=== PATIENT | male | born 1940 | race Caucasian/White ===

== ENCOUNTER 2020-02-22 10:58 | Outpatient (CLI) | payer MEDICARE, SELFPAY ==
[2020-02-22 12:05] LABS: Basophils Absolute Auto 0.1 K/mm3 (0.0-0.1); Basophils Percent Auto 0.7 % (0.2-1.2); Eosinophils Absolute Auto 0.1 K/mm3 (0-0.3); Eosinophils Percent Auto 1.3 % (0-4.4); Hematocrit 40.5 % (42.0-52.0); Immature Granulocyte Absolute 0.03 K/mm3 (0.00-0.031); Immature Granulocyte Percent A 0.3 % (0-0.5); Lymphocytes Percent Auto 26.8 % (18.3-44.2); Mean Corpuscular HGB Conc 34.6 g/dl (32-36); Mean Corpuscular Hemoglobin 29.3 pg (26-34); Mean Corpuscular Volume 84.7 fl (80-100); Mean Platelet Volume 10.9 fl (7.4-10.4); Monocytes Absolute Auto 0.7 K/mm3 (0.1-0.6); Monocytes Percent Auto 7.3 % (2.6-8.5); Neutrophils Absolute Auto 6.2 K/mm3 (1.3-6.7); Neutrophils Percent Auto 63.6 % (45.5-73.1); Platelet Count Result 264 k/mm3 (150-375); Red Blood Count 4.78 M/mm3 (4.6-6.20); Red Cell Distribution Width 12.9 % (11.5-14.5); White Blood Count 9.7 K/mm3 (4.5-10.0)
[2020-02-22 12:18] LABS: Alanine Aminotransferase 15 U/L (4-50); Albumin Level 4.6 g/dL (3.5-5.1); Alkaline Phosphatase 61 U/L (38-126); Anion Gap 13.8 mmol/L (7-16); Aspartate Amino Transferase 24 U/L (17-59); Bilirubin,Total 0.8 mg/dL (0.2-1.3); Blood Urea Nitrogen 23 mg/dL (9-20); Carbon Dioxide 28 mmol/L (22-30); Chloride 95 mmol/L (98-107); Estimated Glomerular Filt Rate > 60; Glucose 100 mg/dL (75-110); Potassium 4.8 mmol/L (3.4-5.0); Sodium 132 mmol/L (137-145)
== END 2020-02-22 10:59 | disposition home or self-care (01) ==
LOC: ANHLAB 11:00
PROVIDERS: PCP Family Medicine; Visit Provider Physician Assistant
DX: D72.829 Elevated white blood cell count, unspecified (principal); I10 Essential (primary) hypertension
CPT/HCPCS: 36415; 80053; 85025

== ENCOUNTER 2020-03-14 07:28 | Outpatient (CLI) | payer MEDICARE, SELFPAY ==
[2020-03-14 08:00] LABS: Anion Gap 8 mmol/L (8-16); Blood Urea Nitrogen 19 mg/dL (9-20); Calcium 9.1 mg/dL (8.4-10.2); Carbon Dioxide 28 mmol/L (22-30); Chloride 100 mmol/L (98-107); Estimated Glomerular Filt Rate > 60; Glucose 111 mg/dL (75-110); Potassium 4.3 mmol/L (3.4-5.0); Sodium 136 mmol/L (137-145)
== END 2020-03-14 07:29 | disposition home or self-care (01) ==
PROVIDERS: PCP Family Medicine; Visit Provider Physician Assistant
DX: E87.1 Hypo-osmolality and hyponatremia (principal)
CPT/HCPCS: 36415; 80048

== ENCOUNTER 2020-08-29 09:48 | Outpatient (CLI) | payer MEDICARE, SELFPAY ==
[2020-08-29 10:20] LABS: Basophils Absolute Auto 0.1 K/mm3 (0.0-0.1); Eosinophils Absolute Auto 0.3 K/mm3 (0-0.3); Eosinophils Percent Auto 3.6 % (0-4.4); Hematocrit 42.7 % (42.0-52.0); Hemoglobin 14.6 g/dL (14.0-18.0); Immature Granulocyte Absolute 0.02 K/mm3 (0.00-0.031); Immature Granulocyte Percent A 0.2 % (0-0.5); Lymphocytes Absolute Auto 2.71 K/mm3 (0.9-3.2); Lymphocytes Percent Auto 31.4 % (18.3-44.2); Mean Corpuscular HGB Conc 34.2 g/dl (32-36); Mean Corpuscular Hemoglobin 28.6 pg (26-34); Mean Corpuscular Volume 83.6 fl (80-100); Mean Platelet Volume 10.3 fl (7.4-10.4); Monocytes Absolute Auto 0.7 K/mm3 (0.1-0.6); Monocytes Percent Auto 7.8 % (2.6-8.5); Neutrophils Absolute Auto 4.8 K/mm3 (1.3-6.7); Platelet Count Result 321 k/mm3 (150-375); Red Blood Count 5.11 M/mm3 (4.6-6.20); Red Cell Distribution Width 13.3 % (11.5-14.5); White Blood Count 8.6 K/mm3 (4.5-10.0)
[2020-08-29 10:29] LABS: Add Urine Microscopic? NO; Appearance Urine Clear (Clear); Bilirubin Urine Negative (Negative); Blood Urine Negative (Negative); Color Urine Yellow (Yellow); Glucose Urine UA Negative (Negative); Ketones Urine Negative (Negative); Leukocyte Esterase Ur Negative LEU/UL (NEGATIVE); Mucus Urine Rare /lpf; Nitrate Urine Negative (Negative); Protein Urine Negative (Negative); RBC Urine 0-2 /hpf (0-2); Specific Grav Ur 1.014 (1.001-1.035); Urobilinogen Urine Negative mg/dL (<2.0); WBC Urine 0-3 /hpf (0-3)
[2020-08-29 11:01] LABS: Vitamin D 25 Hydroxy 22.1 ng/mL
[2020-08-29 11:06] LABS: Alanine Aminotransferase 20 U/L (4-50); Albumin Level 4.8 g/dL (3.5-5.1); Alkaline Phosphatase 55 U/L (38-126); Anion Gap 5 mmol/L (8-16); Aspartate Amino Transferase 30 U/L (17-59); Bilirubin,Total 0.7 mg/dL (0.2-1.3); Blood Urea Nitrogen 21 mg/dL (9-20); Calcium 10.1 mg/dL (8.4-10.2); Carbon Dioxide 32 mmol/L (22-30); Chloride 100 mmol/L (98-107); Cholesterol 265 mg/dL (0-200); Estimated Glomerular Filt Rate > 60; Glucose 114 mg/dL (75-110); HDL Direct 41 mg/dL; Potassium 5.1 mmol/L (3.4-5.0); Sodium 137 mmol/L (137-145); Triglycerides 174 mg/dL (<150)
[2020-08-29 11:12] LABS: Hemoglobin A1C 5.7 % (<5.7)
[2020-08-29 11:18] LABS: LDL Cholesterol Direct 194 mg/dL
[2020-08-29 11:39] LABS: Prostate Specific Antigen 2.4 ng/mL (< OR = 4.0)
== END 2020-08-29 09:49 | disposition home or self-care (01) ==
PROVIDERS: PCP Family Medicine; Visit Provider Nurse Practitioner Family
DX: E55.9 Vitamin D deficiency, unspecified (principal); R73.01 Impaired fasting glucose; E78.2 Mixed hyperlipidemia; R35.1 Nocturia; I10 Essential (primary) hypertension; E78.5 Hyperlipidemia, unspecified; Z12.5 Encounter for screening for malignant neoplasm of prostate
CPT/HCPCS: 36415; 80053; 80061; 81003; 82306; 83036; 84153; 84443; 85025; G0103

== ENCOUNTER 2021-01-29 10:21 | Outpatient (CLI) | payer MEDICARE, SELFPAY ==
[2021-01-29 11:11] LABS: Alanine Aminotransferase 20 U/L (4-50); Albumin Level 4.6 g/dL (3.5-5.1); Alkaline Phosphatase 48 U/L (38-126); Anion Gap 9 mmol/L (8-16); Aspartate Amino Transferase 27 U/L (17-59); Bilirubin,Total 0.7 mg/dL (0.2-1.3); Blood Urea Nitrogen 16 mg/dL (9-20); Calcium 9.4 mg/dL (8.4-10.2); Carbon Dioxide 28 mmol/L (22-30); Chloride 94 mmol/L (98-107); Estimated Glomerular Filt Rate > 60; Glucose 105 mg/dL (75-110); Potassium 5.1 mmol/L (3.4-5.0); Sodium 131 mmol/L (137-145)
== END 2021-01-29 10:22 | disposition home or self-care (01) ==
PROVIDERS: PCP Family Medicine; Visit Provider Nurse Practitioner Family
DX: E78.2 Mixed hyperlipidemia (principal); I10 Essential (primary) hypertension
CPT/HCPCS: 36415; 80053

== ENCOUNTER 2021-09-09 08:35 | Outpatient (CLI) | payer MEDICARE, SELFPAY ==
[2021-09-09 08:51] LABS: Hematocrit 39.9 % (37.0-46.0); Hemoglobin 13.8 g/dL (12.4-15.3); Mean Corpuscular HGB Conc 34.6 g/dL (32.0-36.0); Mean Corpuscular Hemoglobin 29.5 pg (27.0-31.0); Mean Corpuscular Volume 85.3 fL (78.0-102.0); Mean Platelet Volume 9.7 fl (8.7-11.0); Platelet Count Result 300 K/mm3 (150-420); Red Blood Count 4.68 M/mm3 (4.70-6.10); Red Cell Distribution Width 13.5 % (11.6-14.4); White Blood Count 10.8 K/mm3 (4.8-10.8)
[2021-09-09 08:56] LABS: Add Urine Microscopic? NO; Appearance Urine Clear (Clear); Bilirubin Urine Negative (Negative); Blood Urine Negative (Negative); Color Urine Light Yellow (Yellow); Glucose Urine UA Negative (Negative); Ketones Urine Negative (Negative); Leukocyte Esterase Ur Negative (Negative); Nitrate Urine Negative (Negative); Protein Urine Negative (Negative); Specific Grav Ur 1.015 (1.010-1.020); Urobilinogen Urine 0.2 mg/dL (0.2-1.0); pH Urine 7.5 (5.0-8.0)
[2021-09-09 09:36] LABS: Alanine Aminotransferase 33 U/L (16-63); Albumin Level 4.1 g/dL (3.4-5.0); Alkaline Phosphatase 66 U/L (46-116); Anion Gap 9 mmol/L (8-16); Aspartate Amino Transferase 19 U/L (15-37); Bilirubin,Total 0.8 mg/dL (0.00-1.00); Blood Urea Nitrogen 13 mg/dL (7-18); Calcium 9.1 mg/dL (8.5-10.1); Carbon Dioxide 31 mmol/L (21-32); Chloride 97 mmol/L (98-108); Cholesterol 219 mg/dL (0-200); Estimated Glomerular Filt Rate > 60; Glucose 100 mg/dL (70-99); HDL Direct 49 mg/dL (40-60); LDL Cholesterol Calculated 150 mg/dL (<130); Osmolality Calculated 284 mOsm/kg (285-295); Potassium 4.4 mmol/L (3.5-5.1); Sodium 137 mmol/L (136-145); Thyroid Stimulating Hormone 3.54 uIU/mL (0.36-3.74); Total Protein 7.3 g/dL (6.4-8.2); Triglycerides 98 mg/dL (0-150)
== END 2021-09-09 08:36 | disposition home or self-care (01) ==
LOC: CHSLAB 08:37
PROVIDERS: PCP Family Medicine; Visit Provider Family Medicine
DX: E78.2 Mixed hyperlipidemia (principal); I10 Essential (primary) hypertension; Z00.00 Encounter for general adult medical examination without abnormal findings; R53.83 Other fatigue
CPT/HCPCS: 36415; 80053; 80061; 81003; 84443; 85027

== ENCOUNTER 2022-01-31 09:55 | Outpatient (CLI) | payer MEDICARE, SELFPAY ==
[2022-01-31 10:27] LABS: Alanine Aminotransferase 27 U/L (16-63); Albumin Level 4.2 g/dL (3.4-5.0); Alkaline Phosphatase 55 U/L (46-116); Anion Gap 5 mmol/L (8-16); Aspartate Amino Transferase 21 U/L (15-37); Bilirubin,Total 0.6 mg/dL (0.00-1.00); Blood Urea Nitrogen 28 mg/dL (7-18); Calcium 9.2 mg/dL (8.5-10.1); Carbon Dioxide 28 mmol/L (21-32); Chloride 102 mmol/L (98-108); Estimated Glomerular Filt Rate 58; Glucose 110 mg/dL (70-99); Osmolality Calculated 286 mOsm/kg (285-295); Potassium 4.6 mmol/L (3.5-5.1); Sodium 135 mmol/L (136-145); Total Protein 7.8 g/dL (6.4-8.2)
== END 2022-01-31 09:56 | disposition home or self-care (01) ==
LOC: CHSLAB 09:58
PROVIDERS: PCP Physician Assistant; Visit Provider Physician Assistant
DX: I10 Essential (primary) hypertension (principal)
CPT/HCPCS: 36415; 80053

== ENCOUNTER 2022-07-14 10:36 | Outpatient (CLI) | payer MEDICARE, SELFPAY ==
--- NOTE | ~2022-07-14 | XR_ITS ---
Right Knee Technique: AP, lateral, and sunrise views were obtained. Clinical History: Pain Findings: No fracture or dislocation is seen. Mild degenerative change of the medial and patellofemor al compartments is present. There is joint space narrowing of the medial compartment on standing view . Vascular calcifications noted. No joint effusion is seen. Impression: Mild degenerative change of the medial and patellofemoral compartments, with medial compartment narro wing on standing view. Reviewed, dictated and finalized at location M. STAMPING PRESS OPERATOR Impression: Mild degenerative change of the medial and patellofemoral compartments, with me dial compartment narrowing on standing view.
== END 2022-07-14 10:37 | disposition home or self-care (01) ==
LOC: ANHIMG 10:39
PROVIDERS: PCP Family Medicine; Visit Provider Physician Assistant
DX: M25.461 Effusion, right knee (principal); M25.561 Pain in right knee
CPT/HCPCS: 73564

== ENCOUNTER 2022-09-10 07:17 | Outpatient (CLI) | payer MEDICARE, SELFPAY ==
[2022-09-10 08:11] LABS: Hematocrit 39.7 % (42.0-52.0); Hemoglobin 13.5 g/dL (14.0-18.0); Mean Corpuscular Hemoglobin 29.2 pg (26-34); Mean Corpuscular Volume 85.7 fl (80-100); Mean Platelet Volume 9.5 fl (7.4-10.4); Platelet Count Result 333 k/mm3 (150-375); Red Blood Count 4.63 M/mm3 (4.6-6.20); Red Cell Distribution Width 13.2 % (11.5-14.5); White Blood Count 10.9 K/mm3 (4.5-10.0)
[2022-09-10 08:19] LABS: Alanine Aminotransferase 21 U/L (6-50); Albumin Level 4.5 g/dL (3.5-5.1); Alkaline Phosphatase 55 U/L (38-126); Anion Gap 7 mmol/L (8-16); Aspartate Amino Transferase 24 U/L (17-59); Bilirubin,Total 0.6 mg/dL (0.2-1.3); Blood Urea Nitrogen 18 mg/dL (9-20); Calcium 9.3 mg/dL (8.4-10.2); Carbon Dioxide 28 mmol/L (22-30); Chloride 98 mmol/L (98-107); Cholesterol 247 mg/dL (0-200); Estimated Glomerular Filt Rate > 60; Glucose 103 mg/dL (65-110); HDL Direct 39 mg/dL; Potassium 4.4 mmol/L (3.4-5.0); Sodium 133 mmol/L (137-145); Triglycerides 143 mg/dL (<150)
[2022-09-10 08:28] LABS: Hemoglobin A1C 5.6 % (<5.7)
[2022-09-10 08:30] LABS: LDL Cholesterol Direct 144 mg/dL
[2022-09-10 09:48] LABS: Appearance Urine Slightly Cloudy (Clear); Bilirubin Urine Negative (Negative); Blood Urine Trace-intact (Negative); Color Urine Yellow (Yellow); Glucose Urine UA Negative (Negative); Ketones Urine Negative (Negative); Leukocyte Esterase Ur 1+ LEU/UL (NEGATIVE); Nitrate Urine Negative (Negative); Protein Urine Negative (Negative)
[2022-09-10 09:51] LABS: Bacteria Urine Trace /hpf; Squamous Epithelial Cell Urine Rare /hpf (Few); WBC Urine 51-75 /hpf (0-3)
[2022-09-10 09:52] LABS: Add Urine Microscopic? YES
== END 2022-09-10 07:18 | disposition home or self-care (01) ==
PROVIDERS: PCP Family Medicine; Visit Provider Physician Assistant
DX: R73.01 Impaired fasting glucose (principal); E66.3 Overweight; E78.5 Hyperlipidemia, unspecified; I10 Essential (primary) hypertension
CPT/HCPCS: 36415; 80053; 80061; 81001; 83036; 84443; 85027

== ENCOUNTER 2023-01-23 00:18 | Day surgery (SDC) | payer MEDICARE, SELFPAY ==
[2023-01-19 11:31] VITALS: BMI 27.0
--- NOTE | 2023-01-22 12:36 | WPDANESEPPF ---
Anes - Initial Pre Proc Eval Procedure: Operation Date: 01/23/23 09:30 Proposed Procedures p Colonoscopy - Jefferson Meza MD Date/Time: 01/22/23 12:36 Surgeon: Jefferson Meza MD Pre Op Diagnosis: other fecal abnormalities Patient Data Age: 82 Gender: M Height: 1.8 m Weight: 88 kg Allergies Allergy/AdvReac Type Severity Reaction Status Date / Time No Known Allergies Allergy Verified 01/23/23 08:36 Home Medications Medication Instructions Recorded Confirmed Type cholecalciferol (vitamin D3) 25 1,000 unit PO DAILY 08/17/19 01/23/23 History mcg (1,000 unit) capsule cuzrgfmk-mze-wuovl acid 300 1 tablet PO DAILY 08/17/19 01/23/23 History mcg-lycopene 600 mcg-lutein 300 mcg tablet (Centrum Silver Men) gabapentin 100 mg capsule 100 mg PO TID PRN herpetic or 03/21/22 01/23/23 Rx neuropathic pain #60 caps amlodipine 5 mg tablet 5 mg PO DAILY 01/23/23 01/23/23 History lisinopril 20 1 tablet PO DAILY 01/23/23 01/23/23 History mg-hydrochlorothiazide 25 mg tablet Patient hx anesthesia problems: none Family hx anesthesia problems: none Results Review: All pre-operative results and documents have been reviewed as part of the pre-operative evaluation. [facility] Past Medical History Medical History (Updated 01/22/23 @ 12:36 by Kael Brown DO) Essential hypertension HLD (hyperlipidemia) Family History Family History Father Family history of cardiovascular disease Social History Social History Social History: Smoking packs per day: 1 Smoking cigarettes per day: 20.0 Smoking status: Former smoker Tobacco type: cigarettes Second hand tobacco smoke exposure: No Smoking end date: 08/03/76 Alcohol intake: never Substance use: never Substance use type: does not use Living arrangements: with family Occupation/Education: other Additional occupation/education comments: Rental Property Gender identity (if verbalized by the patient): Male Sexual Orientation (if Verbalized by the Patient): Straight or Heterosexual Spiritual care concerns: No Anes - Eval Final PreProcedure Day of Procedure 01/22/23 12:36 Patient weight: overweight Heart: regular rate and rhythm Lungs: clear to auscultation Airway: Mallampati scale class II Neurological: alert and oriented Last oral intake: >/= 8 hours ASA classification: II Emergent: no Anesthetic plan: proceed Anesthesia type and monitoring: general GIVS and standard monitoring Results Review: All pre-operative results and documents have been reviewed as part of the pre-operative evaluation. Informed Consent: The patient's anesthetic plan and its attendant risks and benefits were discussed with the patient/family/POA. Questions were solicited and answers provided to the satisfaction of the patient/family/POA.
[2023-01-23 08:38] VITALS: BP 148/71; PULSE 68; RESP 18; TEMP 36.6; O2SAT 100
[2023-01-23] MEDS: LACTATED RINGERS 1,000 ML 150 ML IV CONT (08:42)
--- NOTE | 2023-01-23 09:54 | PM.HPGS ---
History of Present Illness History of Present Illness Consent: Risks, benefits, and alternatives have been discussed and questions answered. Patient agrees to proceed with procedure. Chief complaint: history of colon polyps Narrative: Costa Gerardo is a 82 year old male Presents for screening colonoscopy. Patient's current weight appetite and bowel movements are normal. Patient denies abdominal pain. He has had no bleeding. In 2018 found to have colon polyps. Patient presents today for surveillance colonoscopy. Patient reports his current weight appetite bowel movements are normal. Patient's recent history includes several surgeries for skin cancer. Review of Systems Review of Systems: Review of systems noncontributory. [facility] Past Medical History Medical History (Updated 01/23/23 @ 09:55 by Jefferson Meza MD) Essential hypertension HLD (hyperlipidemia) Family History Family History Father Family history of cardiovascular disease Social History Social History Social History: Smoking packs per day: 1 Smoking cigarettes per day: 20.0 Smoking status: Former smoker Tobacco type: cigarettes Second hand tobacco smoke exposure: No Smoking end date: 08/03/76 Alcohol intake: never Substance use: never Substance use type: does not use Living arrangements: with family Occupation/Education: other Additional occupation/education comments: Rental Property Gender identity (if verbalized by the patient): Male Sexual Orientation (if Verbalized by the Patient): Straight or Heterosexual Spiritual care concerns: No Meds Home Medications and Allergies Home Medications Medication Instructions Recorded Confirmed Type cholecalciferol (vitamin D3) 25 1,000 unit PO DAILY 08/17/19 01/23/23 History mcg (1,000 unit) capsule cnoyzinb-zor-jdvyd acid 300 1 tablet PO DAILY 08/17/19 01/23/23 History mcg-lycopene 600 mcg-lutein 300 mcg tablet (Centrum Silver Men) gabapentin 100 mg capsule 100 mg PO TID PRN herpetic or 03/21/22 01/23/23 Rx neuropathic pain #60 caps amlodipine 5 mg tablet 5 mg PO DAILY 01/23/23 01/23/23 History lisinopril 20 1 tablet PO DAILY 01/23/23 01/23/23 History mg-hydrochlorothiazide 25 mg tablet Allergies Allergy/AdvReac Type Severity Reaction Status Date / Time No Known Allergies Allergy Verified 01/23/23 08:36 Vital Signs Vital Signs - 24 hr 01/23/23 08:38 Temperature 97.8 F Pulse Rate 68 Respiratory Rate 18 Blood Pressure 148/71 H Pulse Oximetry 100 Oxygen Delivery Room Air Exam Narrative: Physical exam reveals patient to be alert. Vital signs stable. HEENT exam is unremarkable. Patient is anicteric. Lungs are clear to auscultation and percussion. Heart is without murmur or extra sounds. Abdomen bowel sounds are present soft nontender with no organomegaly. Digital external rectal exam is normal. Assessment and Plan Assessment and plan (1) History of colon polyps: Code(s): Z86.010 - Personal history of colonic polyps Status: Acute Assessment and Plan: Patient has a history of adenomatous colon polyps removed from the colon in 2018. Plan for surveillance colonoscopy at this time.
[2023-01-23 10:30] VITALS: BP 137/69; PULSE 68; RESP 22; O2SAT 98
[2023-01-23 10:40] VITALS: BP 129/68; PULSE 67; RESP 26; O2SAT 99
== END 2023-01-23 10:51 | disposition home or self-care (01) ==
PROVIDERS: PCP Family Medicine; Visit Provider Internal Medicine Gastroenterology
PROC: 0DJD8ZZ Inspection of Lower Intestinal Tract, Via Natural or Artificial Opening Endoscopic (ICD-10-PCS; CPT 45378; principal; 2023-01-23 09:30)
DX: Z12.11 Encounter for screening for malignant neoplasm of colon (principal); K64.8 Other hemorrhoids; K57.30 Diverticulosis of large intestine without perforation or abscess without bleeding; Z86.010 Personal history of colon polyps; I10 Essential (primary) hypertension; E78.5 Hyperlipidemia, unspecified; Z87.891 Personal history of nicotine dependence
CPT/HCPCS: G0105; J2704; J7120

== ENCOUNTER 2023-03-16 08:25 | Outpatient (CLI) | payer MEDICARE, SELFPAY ==
[2023-03-16 08:52] LABS: Basophils Absolute Auto 0.1 K/mm3 (0.0-0.1); Basophils Percent Auto 0.9 % (0.2-1.2); Eosinophils Absolute Auto 0.4 K/mm3 (0-0.3); Eosinophils Percent Auto 4.6 % (0-4.4); Hematocrit 39.9 % (42.0-52.0); Hemoglobin 13.3 g/dL (14.0-18.0); Immature Granulocyte Absolute 0.02 K/mm3 (0.00-0.031); Immature Granulocyte Percent A 0.2 % (0-0.5); Lymphocytes Absolute Auto 2.89 K/mm3 (0.9-3.2); Lymphocytes Percent Auto 31.2 % (18.3-44.2); Mean Corpuscular HGB Conc 33.3 g/dl (32-36); Mean Corpuscular Volume 86.9 fl (80-100); Mean Platelet Volume 10.3 fl (7.4-10.4); Monocytes Absolute Auto 0.8 K/mm3 (0.1-0.6); Monocytes Percent Auto 8.9 % (2.6-8.5); Neutrophils Percent Auto 54.2 % (45.5-73.1); Platelet Count Result 253 k/mm3 (150-375); Red Blood Count 4.59 M/mm3 (4.6-6.20); Red Cell Distribution Width 13.6 % (11.5-14.5); White Blood Count 9.3 K/mm3 (4.5-10.0)
[2023-03-16 08:54] LABS: Appearance Urine Clear (Clear); Bilirubin Urine Negative (Negative); Blood Urine Negative (Negative); Color Urine Yellow (Yellow); Glucose Urine UA Negative (Negative); Ketones Urine Negative (Negative); Leukocyte Esterase Ur Negative LEU/UL (NEGATIVE); Nitrate Urine Negative (Negative); Protein Urine Negative (Negative); Specific Grav Ur 1.014 (1.001-1.035); Urobilinogen Urine 0.2 mg/dL (<2.0); pH Urine 6.5 (5.0-9.0)
[2023-03-16 08:57] LABS: Add Urine Microscopic? NO
[2023-03-16 09:05] LABS: Alanine Aminotransferase 19 U/L (6-50); Albumin Level 4.3 g/dL (3.5-5.1); Alkaline Phosphatase 43 U/L (38-126); Anion Gap 6 mmol/L (8-16); Aspartate Amino Transferase 24 U/L (17-59); Bilirubin,Total 0.7 mg/dL (0.2-1.3); Blood Urea Nitrogen 29 mg/dL (9-20); Calcium 9.1 mg/dL (8.4-10.2); Carbon Dioxide 28 mmol/L (22-30); Chloride 104 mmol/L (98-107); Cholesterol 232 mg/dL (0-200); Estimated Glomerular Filt Rate > 60; Glucose 105 mg/dL (65-110); HDL Direct 34 mg/dL; Potassium 4.9 mmol/L (3.4-5.0); Sodium 138 mmol/L (137-145); Triglycerides 143 mg/dL (<150)
[2023-03-16 09:16] LABS: LDL Cholesterol Direct 158 mg/dL
== END 2023-03-16 08:26 | disposition home or self-care (01) ==
PROVIDERS: PCP Family Medicine; Visit Provider Physician Assistant
DX: D72.829 Elevated white blood cell count, unspecified (principal); I10 Essential (primary) hypertension; R31.9 Hematuria, unspecified; E78.5 Hyperlipidemia, unspecified
CPT/HCPCS: 36415; 80053; 80061; 81003; 85025

== ENCOUNTER 2023-04-15 14:17 | Outpatient (CLI) | payer MEDICARE, SELFPAY ==
[2023-04-15 14:50] LABS: Basophils Absolute Auto 0.1 K/mm3 (0.0-0.1); Basophils Percent Auto 0.7 % (0.2-1.2); Eosinophils Absolute Auto 0.3 K/mm3 (0-0.3); Eosinophils Percent Auto 2.4 % (0-4.4); Hematocrit 38.5 % (42.0-52.0); Hemoglobin 13.1 g/dL (14.0-18.0); Immature Granulocyte Absolute 0.02 K/mm3 (0.00-0.031); Immature Granulocyte Percent A 0.2 % (0-0.5); Lymphocytes Percent Auto 27.1 % (18.3-44.2); Mean Corpuscular Volume 85.2 fl (80-100); Mean Platelet Volume 10.2 fl (7.4-10.4); Monocytes Percent Auto 9.2 % (2.6-8.5); Neutrophils Absolute Auto 6.7 K/mm3 (1.3-6.7); Neutrophils Percent Auto 60.4 % (45.5-73.1); Platelet Count Result 271 k/mm3 (150-375); Red Blood Count 4.52 M/mm3 (4.6-6.20); Red Cell Distribution Width 13.3 % (11.5-14.5); White Blood Count 11.1 K/mm3 (4.5-10.0)
[2023-04-15 15:25] LABS: Iron 117 ug/dL (49-181)
[2023-04-15 15:34] LABS: Percent Iron Saturation 33 % (20-50)
== END 2023-04-15 14:18 | disposition home or self-care (01) ==
LOC: ANHLAB 14:19
PROVIDERS: PCP Family Medicine; Visit Provider Physician Assistant
DX: D64.9 Anemia, unspecified (principal)
CPT/HCPCS: 36415; 82607; 82728; 82746; 83540; 83550; 85025

== ENCOUNTER 2023-09-08 15:01 | Emergency (ER) | payer MEDICARE, SELFPAY | END 2023-09-09 02:13 | disposition left against medical advice (07) | LOC: ANHED 09-09 02:12 | PROVIDERS: PCP Family Medicine | DX: Z53.21 Procedure and treatment not carried out due to patient leaving prior to being seen by health care provider (principal) | CPT/HCPCS: 99199 ==

== ENCOUNTER 2023-09-18 07:32 | Outpatient (CLI) | payer MEDICARE, SELFPAY ==
[2023-09-18 07:54] LABS: Basophils Absolute Auto 0.1 K/mm3 (0.0-0.1); Eosinophils Absolute Auto 0.5 K/mm3 (0-0.3); Eosinophils Percent Auto 4.9 % (0-4.4); Hematocrit 38.9 % (42.0-52.0); Hemoglobin 12.8 g/dL (14.0-18.0); Immature Granulocyte Absolute 0.04 K/mm3 (0.00-0.031); Immature Granulocyte Percent A 0.4 % (0-0.5); Lymphocytes Absolute Auto 2.73 K/mm3 (0.9-3.2); Lymphocytes Percent Auto 28.8 % (18.3-44.2); Mean Corpuscular HGB Conc 32.9 g/dl (32-36); Mean Corpuscular Hemoglobin 28.9 pg (26-34); Mean Corpuscular Volume 87.8 fl (80-100); Mean Platelet Volume 10.2 fl (7.4-10.4); Monocytes Absolute Auto 0.9 K/mm3 (0.1-0.6); Monocytes Percent Auto 9.2 % (2.6-8.5); Neutrophils Absolute Auto 5.3 K/mm3 (1.3-6.7); Neutrophils Percent Auto 55.7 % (45.5-73.1); Platelet Count Result 274 k/mm3 (150-375); Red Blood Count 4.43 M/mm3 (4.6-6.20); Red Cell Distribution Width 13.9 % (11.5-14.5); White Blood Count 9.5 K/mm3 (4.5-10.0)
[2023-09-18 07:55] LABS: Appearance Urine Clear (Clear); Bilirubin Urine Negative (Negative); Blood Urine Negative (Negative); Color Urine Yellow (Yellow); Glucose Urine UA Negative (Negative); Ketones Urine Negative (Negative); Leukocyte Esterase Ur Negative LEU/UL (NEGATIVE); Nitrate Urine Negative (Negative); Protein Urine Negative (Negative); Specific Grav Ur 1.011 (1.001-1.035); Urobilinogen Urine 0.2 mg/dL (<2.0); pH Urine 5.5 (5.0-9.0)
[2023-09-18 08:01] LABS: Add Urine Microscopic? NO
[2023-09-18 09:17] LABS: Hemoglobin A1C 5.8 % (<5.7)
== END 2023-09-18 07:33 | disposition home or self-care (01) ==
PROVIDERS: PCP Family Medicine; Visit Provider Physician Assistant
DX: E78.5 Hyperlipidemia, unspecified (principal); I10 Essential (primary) hypertension; D72.829 Elevated white blood cell count, unspecified; R73.01 Impaired fasting glucose; C44.321 Squamous cell carcinoma of skin of nose
CPT/HCPCS: 36415; 80053; 80061; 81003; 83036; 84443; 85025

== ENCOUNTER 2024-03-09 07:52 | Outpatient (CLI) | payer MEDICARE, SELFPAY ==
[2024-03-09 08:28] LABS: Alanine Aminotransferase 17 U/L (6-50); Albumin Level 4.7 g/dL (3.5-5.1); Alkaline Phosphatase 55 U/L (38-126); Anion Gap 11 mmol/L (4-12); Aspartate Amino Transferase 22 U/L (17-59); Bilirubin,Total 0.8 mg/dL (0.2-1.3); Blood Urea Nitrogen 31 mg/dL (9-20); Calcium 9.3 mg/dL (8.4-10.2); Carbon Dioxide 23 mmol/L (22-30); Chloride 102 mmol/L (98-107); Cholesterol 245 mg/dL (0-200); Estimated Glomerular Filt Rate 53; Glucose 107 mg/dL (65-110); HDL Direct 36 mg/dL; Potassium 4.8 mmol/L (3.4-5.0); Sodium 136 mmol/L (137-145); Triglycerides 170 mg/dL (<150)
[2024-03-09 08:39] LABS: LDL Cholesterol Direct 166 mg/dL
[2024-03-09 09:51] LABS: Basophils Absolute Auto 0.1 K/mm3 (0.0-0.1); Basophils Percent Auto 0.8 % (0.2-1.2); Eosinophils Absolute Auto 0.5 K/mm3 (0-0.3); Eosinophils Percent Auto 5.1 % (0-4.4); Hematocrit 41.8 % (42.0-52.0); Hemoglobin 14.3 g/dL (14.0-18.0); Immature Granulocyte Absolute 0.02 K/mm3 (0.00-0.031); Immature Granulocyte Percent A 0.2 % (0-0.5); Lymphocytes Absolute Auto 2.34 K/mm3 (0.9-3.2); Lymphocytes Percent Auto 25.9 % (18.3-44.2); Mean Corpuscular HGB Conc 34.2 g/dl (32-36); Mean Corpuscular Hemoglobin 29.1 pg (26-34); Mean Platelet Volume 11.3 fl (7.4-10.4); Monocytes Absolute Auto 0.8 K/mm3 (0.1-0.6); Monocytes Percent Auto 9.2 % (2.6-8.5); Neutrophils Absolute Auto 5.3 K/mm3 (1.3-6.7); Neutrophils Percent Auto 58.8 % (45.5-73.1); Platelet Count Result 245 k/mm3 (150-375); Red Blood Count 4.92 M/mm3 (4.6-6.20); Red Cell Distribution Width 13.6 % (11.5-14.5)
== END 2024-03-09 07:53 | disposition home or self-care (01) ==
PROVIDERS: PCP Family Medicine; Visit Provider Physician Assistant
DX: R73.01 Impaired fasting glucose (principal); I10 Essential (primary) hypertension; E78.5 Hyperlipidemia, unspecified; D64.9 Anemia, unspecified
CPT/HCPCS: 36415; 80053; 80061; 83036; 84443; 85025

== ENCOUNTER 2024-09-12 08:24 | Outpatient (CLI) | payer MEDICARE, SELFPAY ==
--- OUTSIDE RECORDS SUMMARY | 2024-09-12 08:34 | XMS_ITS | Encounter Summary ---
Author Organization [facility] Address [address] [place] [address] Care Team Providers Care Switch Engineer Name Role Phone Unavailable Primary Care Provider Unavailabl e Encounter Details Date Type Department Care Team (Late st Contact Info) Description 04/05/2024 Lab Requisition [facility] - DermPath Lab [address] [place] [address] Frida Alexander APRN-CNP [facility] DERMATOLOGY [address] [place] [phone] Neoplasm of uncertain behavior of skin Social History Tobacco Use Types Packs/Day Years Used Date Smoking Tobacco: Never Assessed Sex and Gender Information Value Date Recorded Sex Assigned at Not on file Gender Identity Not on file Sexual Orientation Not on file documented as of this encounter Plan of Treatment Not on file documented as of this encounter Procedures Procedure Name Priority Date/Time Associated Diagnosis Comments DERMATOPATHOLOGY Routine 04/05/2024 12:0 0 AM CDT Neoplasm of uncertain behavior of skin documented in this encounter Results * DERMATOPATHOLOGY (04/05/2024 12:00 AM CDT) Case Report Dermatopathology Report Case: [id number] Authorizing Provider: Frida Alexander, Collected: 04/05/2024 12:00 AM CAMOUFLAGE ASSEMBLER-JACK MACHINE OPERATOR Ordering Location: [facility] - Received: 04/06/2024 12:16 PM DermPath Lab Pathologist: Jackelin Douglas MD Specimens: A) - Skin, right medial cheek B) - Skin, right ala 4:25 PM CDT DERMATOPATHOLOGY LABORATORY Final Diagnosis Specimen A. SKIN, right medial cheek: SEBORRHEIC KERATOSIS, IRRITATED AND INFLAMED, SUPERFICIAL PORTIONS OF (L82.0) (see microscopic description) Specimen B. SKIN, right ala: BASAL CELL CARCINOMA, NODULAR TYPE (C44.311) 4:25 PM T DERMATOPATHOLOGY LABORATORY Clinical History A-B: Basal Cell Carcinoma 4:25 PM T DERMATOPATHOLOGY LABORATORY Gross Description Specimen A: Received is one formalin filled container labeled with the patient's name and designated right medial cheek. The specimen consists of a shave biopsy measuring 4x5x3 mm. Jar 0. Specimen B: Received is one formalin filled container labeled with the patient's name and designated right ala. The specimen consists of a shave biopsy measuring 7x5x3 mm. Jar 0. 4:25 PM [facility] DERMATOPATHOLOGY LABORATORY Microscopic Description Specimen A. SKIN, right medial cheek: Sections show acanthosis, papillomatosis, hyperkeratosis, and squamous eddies, extending to the base of the specimen. There is a lymphohistiocytic infiltrate within the sampled papillary dermis. Additional deeper sections were obtained and reviewed. Specimen B. SKIN, right ala: Within the dermis there are aggregates of basaloid cells with a high nuclear to cytoplasmic ratio and peripheral palisading. 4:25 PM [facility] DERMATOPATHOLOGY LABORATORY Disclaimer An external and internal positive and negative controls are appropriate for the histochemical, immunohistochemical and immunofluorescence stain(s) in this case (if any), except where stated explicitly. The performance characteristics of the stain(s) cited in this report were developed and its performance characteristic determined by the Dermatopathology Laboratory at [facility], directed by Dr. Marylu Yu. These tests need not be, and therefore are not, approved by the [place] Food and Drug Administration. The tests are used for clinical purposes. Billing Codes Specimen Charges Stain Charges 00511 60675 1 1 4:25 PM CDT DERMATOPATHOLOGY LABORATORY Embedded Images 4:25 PM [facility] DERMATOPATHOLOGY LABORATORY Pathology/Cytology TISSUE SPECIMEN FROM SKIN / Unknown 04/05/2024 04/06/2024 12:16 PM CDT Miscellaneous samples (specimen) TISSUE SPECIMEN FROM SKIN / Unknown 04/05/2024 04/06/2024 12:16 PM CDT Frida Alexander CAMOUFLAGE ASSEMBLER-JACK MACHINE OPERATOR LAB - PATH OLOGY/CYTOLOGY ORDERABLES DERMATOPATHOLOGY LABORATORY [facility] - Department of Dermatology [facility] Specialized Medicine [address] [place] [address], [address] [phone] documented in this encounter Visit Diagnoses Diagnosis Neoplasm of uncertain behavior of skin documented in this encounter
--- OUTSIDE RECORDS SUMMARY | 2024-09-12 08:34 | XMS_ITS | Referral Summary ---
Author Organization [facility] Address [address] [place] [address] Care Team Providers Care Repairer Evaporator Name Role Phone Unavailable Primary Care Provider Unavailabl e Source Comments [facility],non-owned Affiliates and Associated Physician Practices is amultiple site organization consisting of ambulatory clinics and hospital sitesin [place], [place], [place] and [place]. This disclosure is being madepursuant to the Care Everywhere program and may not contain all information available regarding this patient. Last updated 18.[facility] Allergies No known active allergies Immunizations Name Administration Dates Next Due INFLUENZA VACCINE, HIGH-DOSE , QUADR. (FLUZONE HIGH-DOSE QUADRIVALENT; 65Y+), 0.7 ML (HD-IIV4) 05/06/2018 Social History Tobacco Use Types Packs/Day Years Used Date Smoking Tobacco: Never Assessed Sex and Gender Information Value Date Recorded Sex Assigned at Not on file Gender Identity Not on file Sexual Orientation Not on file Plan of Treatment Not on file JERSEY GERARDO Personal/Family 1940 [address] [place] [address] [place] Gerardo Personal/Family 1940 [address] [place] [address]
--- OUTSIDE RECORDS SUMMARY | 2024-09-12 08:34 | XMS_ITS | Clinical Summary ---
Author Organization [facility] Address [address] [place] [address] Care Team Providers Care Scientific Software Engineer Name Role Phone Unavailable Primary Care Provider Unavailabl e Source Comments [facility],non-owned Affiliates and Associated Physician Practices is amultiple site organization consisting of ambulatory clinics and hospital sitesin [place], [place], [place] and [place]. This disclosure is being madepursuant to the Care Everywhere program and may not contain all information available regarding this patient. Last updated 18.[facility] Allergies No known active allergies Immunizations Name Administration Dates Next Due INFLUENZA VACCINE, HIGH-DOSE , QUADR. (FLUZONE HIGH-DOSE QUADRIVALENT; 65Y+), 0.7 ML (HD-IIV4) 05/06/2018 Social History Tobacco Use Types Packs/Day Years Used Date Smoking Tobacco: Never Assessed Sex and Gender Information Value Date Recorded Sex Assigned at Not on file Gender Identity Not on file Sexual Orientation Not on file Plan of Treatment Health Maintenance Due Date Last Done Comments DTAP/TDAP/TD VACCINES (1 - Tdap) 12/09/1959 PNEUMOCOCCAL VACCINE 50+ (1 of 1 - PCV) 1990 ZOSTER VACCINE (1 of 2) 1990 Respiratory Syncytial Virus (RSV) Vaccine Pt: or over 60 yrs (1 - 1-dose 75+ series) 12/09/2015 COVID-19 VACCINE ( - 2023-2 5 season) 2024 INFLUENZA VACCINE (#1) 2024 05/06/2018 DEPRESSION SCREENING 08/03/2024 MEDICARE AWV CALENDAR YEAR 2024 HEPATITIS B VACCINE Aged Out No longe r eligible based on patient's age to complete this topic HIB VACCINE Aged Out No longer eligi ble based on patient's age to complete this topic HPV VACCINE Aged Out No longer eligi ble based on patient's age to complete this topic MENINGOCOCCAL (Group B) VACCINE Aged Out No longer eligible based on patient's age to complete this topic MENINGOCOCCAL VACCINE Aged Out No shae marcos eligible based on patient's age to complete this topic GERARDOJERSEY Personal/Family 1940 [address] [place] [address] [place] Gerardo Personal/Family 1940 [address] [place] [address]
--- OUTSIDE RECORDS SUMMARY | 2024-09-12 08:35 | XMS_ITS | Encounter Summary ---
Author Organization [facility] Address [address] [place] [address] Care Team Providers Care Monitoring Engineer Name Role Phone Unavailable Primary Care Provider Unavailabl e Encounter Details Date Type Department Care Team (Late st Contact Info) Description 07/20/2023 Lab Requisition [facility] - DermPath Lab [address] [place] [address] Car Alexander MD [facility] DERMATOLOGY [address] [place] [phone] Neoplasm of uncertain behavior of skin [...] Priority Date/Time Associated Diagnosis Comments DERMATOPATHOLOGY Routine 07/20/2023 3:33 AM OCCUPATIONAL THERAPY CO DIRECTOR Neoplasm of uncertain behavior of skin documented in this encounter Results * DERMATOPATHOLOGY (07/20/2023 3:33 AM OCCUPATIONAL THERAPY CO DIRECTOR) Case Report Dermatopathology Report Case: [id number] Authorizing Provider: Car Alexander MD Collected: 07/20/2023 03:33 AM Ordering Location: [facility] DermPath Lab Received: 07/20/2023 01:50 PM Pathologist: Janine Acevedo MD Specimen: Skin, left superior medial malar cheek 12:59 PM OCCUPATIONAL THERAPY CO DIRECTOR DERMATOPATHOLOGY LABORATORY Final Diagnosis Specimen A. SKIN, left superior medial malar cheek: BASAL CELL CARCINOMA, NODULAR TYPE (C44.319) 3 12:59 PM OCCUPATIONAL THERAPY CO DIRECTOR DERMATOPATHOLOGY LABORATORY Clinical History Neoplasm of Uncertain Behavior vs. Basal Cell Carcinoma 3 12:59 PM OCCUPATIONAL THERAPY CO DIRECTOR DERMATOPATHOLOGY LABORATORY Gross Description Specimen A: Received is one formalin filled container labeled with the patient's name and designated left superior medial malar cheek. The specimen consists of a shave biopsy measuring 7x6x2 mm. Jar 0. 3 12:59 PM [facility] DERMATOPATHOLOGY LABORATORY Microscopic Description Specimen A. SKIN, left superior medial malar cheek: Within the dermis there are aggregates of basaloid cells with a high nuclear to cytoplasmic ratio and peripheral palisading. 3 12:59 PM OCCUPATIONAL THERAPY CO DIRECTOR DERMATOPATHOLOGY LABORATORY Disclaimer An external and internal positive and negative controls are appropriate for the histochemical, immunohistochemical and immunofluorescence stain(s) in this case (if any), except where stated explicitly. The performance characteristics of the stain(s) cited in this report were developed and its performance characteristic determined by the Dermatopathology Laboratory at [facility], directed by Dr. Marylu Yu. These tests need not be, and therefore are not, approved by the [place] Food and Drug Administration. The tests are used for clinical purposes. Billing Codes Specimen Charges Stain Charges 98782 1 3 12:59 PM OCCUPATIONAL THERAPY CO DIRECTOR DERMATOPATHOLOGY LABORATORY Embedded Images 3 12:59 PM OCCUPATIONAL THERAPY CO DIRECTOR DERMATOPATHOLOGY LABORATORY Pathology/Cytolo gy TISSUE SPECIMEN FROM SKIN / Unknown 07/20/2023 3:33 AM OCCUPATIONAL THERAPY CO DIRECTOR 07/20/2023 1:50 PM OCCUPATIONAL THERAPY CO DIRECTOR Car Alexander MD LAB - PATHOLOGY/CYTO LOGY ORDERABLES DERMATOPATHOLOGY LABORATORY [facility] - Department of Dermatology [address], [address] [phone] documented in this encounter Visit Diagnoses Diagnosis Neoplasm of uncertain behavior of skin documented in this encounter
--- OUTSIDE RECORDS SUMMARY | 2024-09-12 08:35 | XMS_ITS | Patient Health Summary ---
Author Organization [facility] Address [address] [place] [address] Care Team Providers Care Carbon Furnace Operator Name Role Phone Unavailable Primary Care Provider Unavailabl e Note from [facility],non-owned Affiliates and Associated Physician Practices is amultiple site organization consisting of ambulatory clinics and hospital sitesin [place], [place] and [place]. This disclosure is being madepursuant to the Care Everywhere program and may not contain all information available regarding this patient. Last updated 18.[facility] Allergies No known active allergies Immunizations * INFLUENZA VACCINE, HIGH-DOSE, QUADR. (FLUZONE HIGH-DOSE QUADRIVALENT; 65Y+), 0.7 ML (HD-IIV4)(Given 05/06/2018) Social History Tobacco Use Types Packs/Day Years Used Date Smoking Tobacco: Never Assessed Sex and Gender Information Value Date Recorded Sex Assigned at Not on file Gender Identity Not on file Sexual Orientation Not on file Procedures * DERMATOPATHOLOGY(Performed 04/05/2024) Performed for Neoplasm of uncertain behavior of skin * DERMATOPATHOLOGY(Performed 07/20/2023) Performed for Neoplasm of uncertain behavior of skin * DERMATOPATHOLOGY(Performed 04/23/2022) Performed for Neoplasm of uncertain behavior of skin Results * DERMATOPATHOLOGY (04/05/2024 12:00 AM CDT) Only the most recent of3 resultswithin the time period is included. Case Report Dermatopathology Report Case: [id number] Authorizing Provider: Frida Alexander, Collected: 04/05/2024 12:00 AM PANEL COVERER-BARGE WORKER Ordering Location: [facility] - Received: 04/06/2024 12:16 PM DermPath Lab Pathologist: Jackelin Douglas MD Specimens: A) - Skin, right medial cheek B) - Skin, right ala 4:25 PM [facility] DERMATOPATHOLOGY LABORATORY Final Diagnosis Specimen A. SKIN, right medial cheek: SEBORRHEIC KERATOSIS, IRRITATED AND INFLAMED, SUPERFICIAL PORTIONS OF (L82.0) (see microscopic description) Specimen B. SKIN, right ala: BASAL CELL CARCINOMA, NODULAR TYPE (C44.311) 4:25 PM T DERMATOPATHOLOGY LABORATORY Clinical History A-B: Basal Cell Carcinoma 4:25 PM [facility] DERMATOPATHOLOGY LABORATORY Gross Description Specimen A: Received [...] measuring 7x5x3 mm. Jar 0. 4:25 PM [facility] DERMATOPATHOLOGY LABORATORY Microscopic Description Specimen A. SKIN, [...] cytoplasmic ratio and peripheral palisading. 4:25 PM [facility] DERMATOPATHOLOGY LABORATORY Disclaimer An external and internal positive and negative controls are appropriate for the histochemical, immunohistochemical and immunofluorescence stain(s) in this case (if any), except where stated explicitly. The performance characteristics of the stain(s) cited in this report were developed and its performance characteristic determined by the Dermatopathology Laboratory at [facility], directed by Dr. Marylu Yu. These tests need not be, and therefore are not, approved by the [place] Food and Drug Administration. The tests are used for clinical purposes. Billing Codes Specimen Charges Stain Charges 04256 69606 1 1 4:25 PM T DERMATOPATHOLOGY LABORATORY Embedded Images 4:25 PM CDT DERMATOPATHOLOGY LABORATORY Pathology/Cytology TISSUE SPECIMEN FROM SKIN / Unknown 04/05/2024 04/06/2024 12:16 PM CDT Miscellaneous samples (specimen) TISSUE SPECIMEN FROM SKIN / Unknown 04/05/2024 04/06/2024 12:16 PM CDT Frida Alexander PANEL COVERER-BARGE WORKER LAB - PATH OLOGY/CYTOLOGY ORDERABLES DERMATOPATHOLOGY LABORATORY [facility] - Department of Dermatology [facility] Specialized Medicine [address] [place] [address], [address] [phone]
[2024-09-12 08:59] LABS: Basophils Absolute Auto 0.1 K/mm3 (0.0-0.1); Eosinophils Absolute Auto 0.5 K/mm3 (0-0.3); Eosinophils Percent Auto 5.5 % (0-4.4); Hematocrit 44.8 % (42.0-52.0); Hemoglobin 14.5 g/dL (14.0-18.0); Immature Granulocyte Absolute 0.04 K/mm3 (0.00-0.031); Immature Granulocyte Percent A 0.4 % (0-0.5); Lymphocytes Absolute Auto 2.28 K/mm3 (0.9-3.2); Lymphocytes Percent Auto 24.9 % (18.3-44.2); Mean Corpuscular HGB Conc 32.4 g/dl (32-36); Mean Corpuscular Hemoglobin 28.2 pg (26-34); Mean Corpuscular Volume 87.2 fl (80-100); Mean Platelet Volume 10.4 fl (7.4-10.4); Monocytes Absolute Auto 0.8 K/mm3 (0.1-0.6); Monocytes Percent Auto 8.3 % (2.6-8.5); Neutrophils Absolute Auto 5.5 K/mm3 (1.3-6.7); Neutrophils Percent Auto 59.9 % (45.5-73.1); Platelet Count Result 285 k/mm3 (150-375); Red Blood Count 5.14 M/mm3 (4.6-6.20); White Blood Count 9.2 K/mm3 (4.5-10.0)
[2024-09-12 09:11] LABS: Alanine Aminotransferase 20 U/L (6-50); Albumin Level 4.7 g/dL (3.5-5.1); Alkaline Phosphatase 66 U/L (38-126); Anion Gap 12 mmol/L (4-12); Aspartate Amino Transferase 28 U/L (17-59); Blood Urea Nitrogen 36 mg/dL (9-20); Calcium 9.8 mg/dL (8.4-10.2); Carbon Dioxide 26 mmol/L (22-30); Chloride 103 mmol/L (98-107); Estimated Glomerular Filt Rate 43; Glucose 108 mg/dL (65-110); Potassium 5.5 mmol/L (3.4-5.0); Sodium 141 mmol/L (137-145)
== END 2024-09-12 08:25 | disposition home or self-care (01) ==
LOC: ANHLAB 08:26
PROVIDERS: PCP Family Medicine; Visit Provider Physician Assistant
DX: D64.9 Anemia, unspecified (principal); R73.01 Impaired fasting glucose; E78.2 Mixed hyperlipidemia; I10 Essential (primary) hypertension; D72.829 Elevated white blood cell count, unspecified
CPT/HCPCS: 36415; 80053; 83036; 85025

== ENCOUNTER 2024-09-22 14:06 | Outpatient (CLI) | payer MEDICARE, SELFPAY ==
--- OUTSIDE RECORDS SUMMARY | 2024-09-22 14:11 | XMS_ITS | Referral Summary ---
Author Organization [facility] Address [address] [place] [address] Care Team Providers Care Immigration Law Specialist Name Role Phone Unavailable Primary Care Provider Unavailabl e Source Comments [facility],non-owned Affiliates and Associated Physician Practices is amultiple site organization consisting of ambulatory clinics and hospital sitesin [place], [place], [place] and [place]. This disclosure is being madepursuant to the Care Everywhere program and may not contain all information available regarding this patient. Last updated 18.[facility] Allergies No known active allergies Immunizations Name [...] on file JERSEY GERARDO Personal/Family 1940 [address] [place] [address] [place] Gerardo Personal/Family 1940 [address] [place] [address]
--- OUTSIDE RECORDS SUMMARY | 2024-09-22 14:11 | XMS_ITS | Encounter Summary ---
Author Organization [facility] Address [address] [place] [address] Care Team Providers Care Software Qa System Specialist Name Role Phone Unavailable Primary Care Provider Unavailabl e Encounter Details Date Type Department Care Team (Late st Contact Info) Description 07/20/2023 Lab Requisition [facility] - DermPath Lab [address] [facility], [place] [address] Car Alexander MD [facility] DERMATOLOGY [address] [place] [phone] Neoplasm of uncertain behavior of skin [...] Diagnosis Comments DERMATOPATHOLOGY Routine 07/20/2023 3:33 AM ORDER WORKER Neoplasm of uncertain behavior of skin documented in this encounter Results * DERMATOPATHOLOGY (07/20/2023 3:33 AM ORDER WORKER) Case Report Dermatopathology Report Case: [id number] Authorizing Provider: Car Alexander MD Collected: 07/20/2023 03:33 AM Ordering Location: [facility] DermPath Lab Received: 07/20/2023 01:50 PM Pathologist: Janine Acevedo MD Specimen: Skin, left superior medial malar cheek 12:59 PM ORDER WORKER DERMATOPATHOLOGY LABORATORY Final Diagnosis Specimen A. SKIN, left superior medial malar cheek: BASAL CELL CARCINOMA, NODULAR TYPE (C44.319) 3 12:59 PM ORDER WORKER DERMATOPATHOLOGY LABORATORY Clinical History Neoplasm of Uncertain Behavior vs. Basal Cell Carcinoma 3 12:59 PM ORDER WORKER DERMATOPATHOLOGY LABORATORY Gross Description Specimen A: Received is one formalin filled container labeled with the patient's name and designated left superior medial malar cheek. The specimen consists of a shave biopsy measuring 7x6x2 mm. Jar 0. 3 12:59 PM [facility] DERMATOPATHOLOGY LABORATORY Microscopic Description Specimen A. SKIN, left superior medial malar cheek: Within the dermis there are aggregates of basaloid cells with a high nuclear to cytoplasmic ratio and peripheral palisading. 3 12:59 PM ORDER WORKER DERMATOPATHOLOGY LABORATORY Disclaimer An external and internal positive and negative controls are appropriate for the histochemical, immunohistochemical and immunofluorescence stain(s) in this case (if any), except where stated explicitly. The performance characteristics of the stain(s) cited in this report were developed and its performance characteristic determined by the Dermatopathology Laboratory at [facility], directed by Dr. Marylu Yu. These tests need not be, and therefore are not, approved by the [place] Food and Drug Administration. The tests are used for clinical purposes. Billing Codes Specimen Charges Stain Charges 15312 1 3 12:59 PM ORDER WORKER DERMATOPATHOLOGY LABORATORY Embedded Images 3 12:59 PM ORDER WORKER DERMATOPATHOLOGY LABORATORY Pathology/Cytolo gy TISSUE SPECIMEN FROM SKIN / Unknown 07/20/2023 3:33 AM ORDER WORKER 07/20/2023 1:50 PM ORDER WORKER Car Alexander MD LAB - PATHOLOGY/CYTO LOGY ORDERABLES DERMATOPATHOLOGY LABORATORY [facility] - Department of Dermatology [address], [address] [phone] documented in this encounter Visit Diagnoses Diagnosis Neoplasm of uncertain behavior of skin documented in this encounter
--- OUTSIDE RECORDS SUMMARY | 2024-09-22 14:11 | XMS_ITS | Encounter Summary ---
Author Organization [facility] Address [address] [facility] [place] [place] [address] Care Team Providers Care Primer Charger Name Role Phone Unavailable Primary Care Provider Unavailabl e Encounter Details Date Type Department Care Team (Late st Contact Info) Description 04/05/2024 Lab Requisition [facility] - DermPath Lab [address] [facility], [place] [address] Frida Alexander APRN-CNP [facility] DERMATOLOGY [address] [place] [phone] Neoplasm of uncertain behavior of skin [...] AM CDT) Case Report Dermatopathology Report Case: [id number] Authorizing Provider: Frida Alexander, Collected: 04/05/2024 12:00 AM DIRECTOR OF REHABILITATION-PRENATAL TEACHER Ordering Location: [facility] - Received: 04/06/2024 12:16 [...] measuring 7x5x3 mm. Jar 0. 4:25 PM [facility] DERMATOPATHOLOGY LABORATORY Microscopic Description Specimen A. [...] cytoplasmic ratio and peripheral palisading. 4:25 PM [facility] DERMATOPATHOLOGY LABORATORY Disclaimer An external and internal positive and negative controls are appropriate for the histochemical, immunohistochemical and immunofluorescence stain(s) in this case (if any), except where stated explicitly. The performance characteristics of the stain(s) cited in this report were developed and its performance characteristic determined by the Dermatopathology Laboratory at [facility], directed by Dr. Marylu Yu. These tests need not be, and therefore are not, approved by the [place] Food and Drug Administration. The tests are used for clinical purposes. Billing Codes Specimen Charges Stain Charges 23099 25496 1 1 4:25 PM CDT DERMATOPATHOLOGY LABORATORY Embedded Images 4:25 PM [facility] DERMATOPATHOLOGY LABORATORY Pathology/Cytology TISSUE SPECIMEN FROM SKIN / Unknown 04/05/2024 04/06/2024 12:16 PM CDT Miscellaneous samples (specimen) TISSUE SPECIMEN FROM SKIN / Unknown 04/05/2024 04/06/2024 12:16 PM CDT Frida Alexander DIRECTOR OF REHABILITATION-PRENATAL TEACHER LAB - PATH OLOGY/CYTOLOGY ORDERABLES DERMATOPATHOLOGY LABORATORY [facility] - Department of Dermatology [facility] Specialized Medicine [address] [place] [address], [address] [phone] documented in this encounter Visit Diagnoses Diagnosis Neoplasm of uncertain behavior of skin documented in this encounter
--- OUTSIDE RECORDS SUMMARY | 2024-09-22 14:11 | XMS_ITS | Patient Health Summary ---
Author Organization [facility] Address [address] [facility] [place] [address] Care Team Providers Care Char Puller Name Role Phone Unavailable Primary Care Provider Unavailabl e Note from [facility],non-owned Affiliates and Associated Physician Practices is amultiple site organization consisting of ambulatory clinics and hospital sitesin [place], [place], [place] and [place]. This disclosure is being madepursuant to the Care Everywhere program and may not contain all information available regarding this patient. Last updated 18.[facility] Allergies No known active allergies Immunizations * [...] is included. Case Report Dermatopathology Report Case: [id number] Authorizing Provider: Frida Alexander, Collected: 04/05/2024 12:00 AM POTATO SPOTTER-AUTOMOBILE TIRE BUILDER Ordering Location: [facility] - Received: 04/06/2024 12:16 PM DermPath Lab Pathologist: Jackelin Dogulas MD Specimens: A) - Skin, right medial cheek B) - Skin, right ala 4:25 PM [facility] DERMATOPATHOLOGY LABORATORY Final Diagnosis Specimen A. SKIN, right medial cheek: SEBORRHEIC KERATOSIS, IRRITATED AND INFLAMED, SUPERFICIAL PORTIONS OF (L82.0) (see microscopic description) Specimen B. SKIN, right ala: BASAL CELL CARCINOMA, NODULAR TYPE (C44.311) 4:25 PM T DERMATOPATHOLOGY LABORATORY Clinical History A-B: Basal Cell Carcinoma 4:25 PM [facility] DERMATOPATHOLOGY LABORATORY Gross Description Specimen A: Received [...] 7x5x3 mm. Jar 0. 4:25 PM [facility] DERMATOPATHOLOGY LABORATORY Microscopic Description Specimen A. [...] ratio and peripheral palisading. 4:25 PM [facility] DERMATOPATHOLOGY LABORATORY Disclaimer An external and internal positive and negative controls are appropriate for the histochemical, immunohistochemical and immunofluorescence stain(s) in this case (if any), except where stated explicitly. The performance characteristics of the stain(s) cited in this report were developed and its performance characteristic determined by the Dermatopathology Laboratory at [facility], directed by Dr. Marylu Yu. These tests need not be, and therefore are not, approved by the [place] Food and Drug Administration. The tests are used for clinical purposes. Billing Codes Specimen Charges Stain Charges 50747 99464 1 1 4:25 PM T DERMATOPATHOLOGY LABORATORY Embedded Images 4:25 PM CDT DERMATOPATHOLOGY LABORATORY Pathology/Cytology TISSUE SPECIMEN FROM SKIN / Unknown 04/05/2024 04/06/2024 12:16 PM CDT Miscellaneous samples (specimen) TISSUE SPECIMEN FROM SKIN / Unknown 04/05/2024 04/06/2024 12:16 PM CDT Frida Alexander POTATO SPOTTER-AUTOMOBILE TIRE BUILDER LAB - PATH OLOGY/CYTOLOGY ORDERABLES DERMATOPATHOLOGY LABORATORY [facility] - Department of Dermatology [facility] Specialized Medicine [address] [place] [address], [address] [phone]
--- OUTSIDE RECORDS SUMMARY | 2024-09-22 14:11 | XMS_ITS | Clinical Summary ---
Author Organization [facility] [employer] Address [address] [place] [address] Care Team Providers Care Ecg Technician Name Role Phone Unavailable Primary Care Provider Unavailabl e Source Comments [facility],non-owned Affiliates and Associated Physician Practices is amultiple site organization consisting of ambulatory clinics and hospital sitesin [place], [place], [place] and [place]. This disclosure is being madepursuant to the Care Everywhere program and may not contain all information available regarding this patient. Last updated 18.[facility] Allergies No known active allergies Immunizations Name [...] complete this topic GERARDOJERSEY Personal/Family 1940 [address] [place] [address] [place] Geradro Personal/Family 1940 [address] [place] [address]
[2024-09-22 15:06] LABS: Anion Gap 11 mmol/L (4-12); Blood Urea Nitrogen 40 mg/dL (9-20); Calcium 9.6 mg/dL (8.4-10.2); Carbon Dioxide 24 mmol/L (22-30); Chloride 106 mmol/L (98-107); Estimated Glomerular Filt Rate 38; Glucose 96 mg/dL (65-110); Potassium 5.5 mmol/L (3.4-5.0); Sodium 141 mmol/L (137-145)
== END 2024-09-22 14:07 | disposition home or self-care (01) ==
PROVIDERS: PCP Family Medicine; Visit Provider Physician Assistant
DX: N17.9 Acute kidney failure, unspecified (principal)
CPT/HCPCS: 36415; 80048

== ENCOUNTER 2024-09-27 10:38 | Outpatient (CLI) | payer MEDICARE, SELFPAY ==
[2024-09-27 11:27] LABS: Anion Gap 10 mmol/L (4-12); Blood Urea Nitrogen 29 mg/dL (9-20); Calcium 9.5 mg/dL (8.4-10.2); Carbon Dioxide 24 mmol/L (22-30); Chloride 105 mmol/L (98-107); Estimated Glomerular Filt Rate 55; Glucose 97 mg/dL (65-110); Potassium 5.2 mmol/L (3.4-5.0); Sodium 139 mmol/L (137-145)
--- OUTSIDE RECORDS SUMMARY | 2024-09-27 12:28 | XMS_ITS | Referral Summary ---
Author Organization [facility] [employer] Address [address] [place] [id number] Care Team Providers Care Organic Section Technical Lead Name Role Phone Unavailable Primary Care Provider Unavailabl e Source Comments [facility] [employer],non-owned Affiliates and Associated Physician Practices is amultiple site organization consisting of ambulatory clinics and hospital sitesin [place], [place], [place] and [place]. This disclosure is being madepursuant to the Care Everywhere program and may not contain all information available regarding this patient. Last updated 18.[facility] [employer] Allergies No known active allergies Immunizations Name [...] on file JERSEY GERARDO Personal/Family 1940 [address] [place] [address] [place] Gerardo Personal/Family 1940 [address] [place] [address]
--- OUTSIDE RECORDS SUMMARY | 2024-09-27 12:28 | XMS_ITS | Encounter Summary ---
Author Organization [facility] Address [address] [facility] [address] Care Team Providers Care Lathe Spotter Name Role Phone Unavailable Primary Care Provider Unavailabl e Encounter Details Date Type Department Care Team (Late st Contact Info) Description 04/05/2024 Lab Requisition [facility] - DermPath Lab [address] [facility], [place] [address] Frida Alexander APRN-CNP [facility] DERMATOLOGY [address] [place] [phone] Neoplasm of uncertain behavior of skin [...] AM CDT) Case Report Dermatopathology Report Case: [id number] Authorizing Provider: Frida Alexander, Collected: 04/05/2024 12:00 AM SHOP TAILOR APPRENTICE-LEATHER COLORER Ordering Location: [facility] - Received: 04/06/2024 12:16 PM [...] measuring 7x5x3 mm. Jar 0. 4:25 PM [facility] DERMATOPATHOLOGY LABORATORY Microscopic Description Specimen A. SKIN, [...] cytoplasmic ratio and peripheral palisading. 4:25 PM [facility] DERMATOPATHOLOGY LABORATORY Disclaimer An external and internal positive and negative controls are appropriate for the histochemical, immunohistochemical and immunofluorescence stain(s) in this case (if any), except where stated explicitly. The performance characteristics of the stain(s) cited in this report were developed and its performance characteristic determined by the Dermatopathology Laboratory at [facility], directed by Dr. Marylu Yu. These tests need not be, and therefore are not, approved by the [place] Food and Drug Administration. The tests are used for clinical purposes. Billing Codes Specimen Charges Stain Charges 62734 27697 1 1 4:25 PM CDT DERMATOPATHOLOGY LABORATORY Embedded Images 4:25 PM [facility] DERMATOPATHOLOGY LABORATORY Pathology/Cytology TISSUE SPECIMEN FROM SKIN / Unknown 04/05/2024 04/06/2024 12:16 PM CDT Miscellaneous samples (specimen) TISSUE SPECIMEN FROM SKIN / Unknown 04/05/2024 04/06/2024 12:16 PM CDT Frida Alexander SHOP TAILOR APPRENTICE-LEATHER COLORER LAB - PATH OLOGY/CYTOLOGY ORDERABLES DERMATOPATHOLOGY LABORATORY [facility] - Department of Dermatology [facility] Specialized Medicine [address] [place] [address], [address] [phone] documented in this encounter Visit Diagnoses Diagnosis Neoplasm of uncertain behavior of skin documented in this encounter
--- OUTSIDE RECORDS SUMMARY | 2024-09-27 12:28 | XMS_ITS | Encounter Summary ---
Author Organization [facility] Address [address] [facility] [place] [address] Care Team Providers Care Motor Vehicle Lecturer Name Role Phone Unavailable Primary Care Provider Unavailabl e Encounter Details Date Type Department Care Team (Late st Contact Info) Description 07/20/2023 Lab Requisition [facility] - DermPath Lab [address] [facility], [place] [address] Car Alexander MD [facility] DERMATOLOGY [address] [place] [phone] Neoplasm of uncertain behavior of skin [...] Diagnosis Comments DERMATOPATHOLOGY Routine 07/20/2023 3:33 AM PSYCHIATRIC THERAPIST Neoplasm of uncertain behavior of skin documented in this encounter Results * DERMATOPATHOLOGY (07/20/2023 3:33 AM PSYCHIATRIC THERAPIST) Case Report Dermatopathology Report Case: [id number] Authorizing Provider: Car Alexander MD Collected: 07/20/2023 03:33 AM Ordering Location: [facility] DermPath Lab Received: 07/20/2023 01:50 PM Pathologist: Janine Acevedo MD Specimen: Skin, left superior medial malar cheek 12:59 PM PSYCHIATRIC THERAPIST DERMATOPATHOLOGY LABORATORY Final Diagnosis Specimen A. SKIN, left superior medial malar cheek: BASAL CELL CARCINOMA, NODULAR TYPE (C44.319) 3 12:59 PM PSYCHIATRIC THERAPIST DERMATOPATHOLOGY LABORATORY Clinical History Neoplasm of Uncertain Behavior vs. Basal Cell Carcinoma 3 12:59 PM PSYCHIATRIC THERAPIST DERMATOPATHOLOGY LABORATORY Gross Description Specimen A: Received is one formalin filled container labeled with the patient's name and designated left superior medial malar cheek. The specimen consists of a shave biopsy measuring 7x6x2 mm. Jar 0. 3 12:59 PM [facility] DERMATOPATHOLOGY LABORATORY Microscopic Description Specimen A. SKIN, left superior medial malar cheek: Within the dermis there are aggregates of basaloid cells with a high nuclear to cytoplasmic ratio and peripheral palisading. 3 12:59 PM PSYCHIATRIC THERAPIST DERMATOPATHOLOGY LABORATORY Disclaimer An external and internal positive and negative controls are appropriate for the histochemical, immunohistochemical and immunofluorescence stain(s) in this case (if any), except where stated explicitly. The performance characteristics of the stain(s) cited in this report were developed and its performance characteristic determined by the Dermatopathology Laboratory at [facility], directed by Dr. Marylu Yu. These tests need not be, and therefore are not, approved by the [place] Food and Drug Administration. The tests are used for clinical purposes. Billing Codes Specimen Charges Stain Charges 47965 1 3 12:59 PM PSYCHIATRIC THERAPIST DERMATOPATHOLOGY LABORATORY Embedded Images 3 12:59 PM PSYCHIATRIC THERAPIST DERMATOPATHOLOGY LABORATORY Pathology/Cytolo gy TISSUE SPECIMEN FROM SKIN / Unknown 07/20/2023 3:33 AM PSYCHIATRIC THERAPIST 07/20/2023 1:50 PM PSYCHIATRIC THERAPIST Car Alexander MD LAB - PATHOLOGY/CYTO LOGY ORDERABLES DERMATOPATHOLOGY LABORATORY [facility] - Department of Dermatology [address], [address] [phone] documented in this encounter Visit Diagnoses Diagnosis Neoplasm of uncertain behavior of skin documented in this encounter
--- OUTSIDE RECORDS SUMMARY | 2024-09-27 12:28 | XMS_ITS | Clinical Summary ---
Author Organization [facility] [email or web address] Address [address] [place] [address] Care Team Providers Care Oriental Rug Stretcher Name Role Phone Unavailable Primary Care Provider Unavailabl e Source Comments [facility] [email or web address],non-owned Affiliates and Associated Physician Practices is amultiple site organization consisting of ambulatory clinics and hospital sitesin [place], [place], [place] and [place]. This disclosure is being madepursuant to the Care Everywhere program and may not contain all information available regarding this patient. Last updated 18.[facility] [email or web address] Allergies No known active allergies Immunizations Name [...] complete this topic GERARDOJERSEY Personal/Family 1940 [address] [place] [address] [place] Gerardo Personal/Family 1940 [address] [place] [address]
--- OUTSIDE RECORDS SUMMARY | 2024-09-27 12:29 | XMS_ITS | Patient Health Summary ---
Author Organization [facility] Address [address] [place] [address] Care Team Providers Care Developer Support Engineer Name Role Phone Unavailable Primary Care Provider Unavailabl e Note from [facility],non-owned Affiliates and Associated Physician Practices is amultiple site organization consisting of ambulatory clinics and hospital sitesin [place], [place], [place] and [place]. This disclosure is being madepursuant to the Care Everywhere program and may not contain all information available regarding this patient. Last updated 18.[facility] Allergies No known active allergies Immunizations * [...] is included. Case Report Dermatopathology Report Case: [id number] Authorizing Provider: Frida Alexander, Collected: 04/05/2024 12:00 AM TOMATO GRADER-BRAND ANALYST Ordering Location: [facility] - Received: 04/06/2024 12:16 PM DermPath Lab Pathologist: Jackelin Douglas MD Specimens: A) - Skin, right medial cheek B) - Skin, right ala 4:25 PM [facility] DERMATOPATHOLOGY LABORATORY Final Diagnosis Specimen A. SKIN, right medial cheek: SEBORRHEIC KERATOSIS, IRRITATED AND INFLAMED, SUPERFICIAL PORTIONS OF (L82.0) (see microscopic description) Specimen B. SKIN, right ala: BASAL CELL CARCINOMA, NODULAR TYPE (C44.311) 4:25 PM T DERMATOPATHOLOGY LABORATORY Clinical History A-B: Basal Cell Carcinoma 4:25 PM [facility] DERMATOPATHOLOGY LABORATORY Gross Description Specimen A: [...] measuring 7x5x3 mm. Jar 0. 4:25 PM [facility] DERMATOPATHOLOGY LABORATORY Microscopic Description Specimen A. [...] cytoplasmic ratio and peripheral palisading. 4:25 PM [facility] DERMATOPATHOLOGY LABORATORY Disclaimer An external and internal positive and negative controls are appropriate for the histochemical, immunohistochemical and immunofluorescence stain(s) in this case (if any), except where stated explicitly. The performance characteristics of the stain(s) cited in this report were developed and its performance characteristic determined by the Dermatopathology Laboratory at [facility], directed by Dr. Marylu Yu. These tests need not be, and therefore are not, approved by the [place] Food and Drug Administration. The tests are used for clinical purposes. Billing Codes Specimen Charges Stain Charges 89281 15971 1 1 4:25 PM T DERMATOPATHOLOGY LABORATORY Embedded Images 4:25 PM [facility] DERMATOPATHOLOGY LABORATORY Pathology/Cytology TISSUE SPECIMEN FROM SKIN / Unknown 04/05/2024 04/06/2024 12:16 PM CDT Miscellaneous samples (specimen) TISSUE SPECIMEN FROM SKIN / Unknown 04/05/2024 04/06/2024 12:16 PM CDT Frida Alexander TOMATO GRADER-BRAND ANALYST LAB - PATH OLOGY/CYTOLOGY ORDERABLES DERMATOPATHOLOGY LABORATORY [facility] - Department of Dermatology [facility] Specialized Medicine [address] [place] [address], [address] [phone]
== END 2024-09-27 10:39 | disposition home or self-care (01) ==
PROVIDERS: PCP Family Medicine; Visit Provider Physician Assistant
DX: N17.9 Acute kidney failure, unspecified (principal); E87.5 Hyperkalemia
CPT/HCPCS: 36415; 80048

== ENCOUNTER 2024-10-05 14:15 | Outpatient (CLI) | payer MEDICARE, SELFPAY ==
--- NOTE | ~2024-10-05 | US_ITS ---
EXAMINATION: US renal BI DATE: 10/05/2024 14:54 INDICATION: Acute renal insufficiency TECHNIQUE: Multiple ultrasound grayscale images of the kidneys were obtained. COMPARISON: None. FINDINGS: The right kidney measures 10.1 x 5.4 x 6.2 cm. The left kidney measures 9.3 x 5.8 x 5.0 cm. The kidne ys demonstrate normal echogenicity. There is no hydronephrosis in either kidney. No stones identifie d. The bladder is normal with bilateral ureteral jets visualized on color Doppler. Prostatomegaly karan suring approximately 5.0 x 4.9 x 4.8cm. IMPRESSION: 1. Normal kidneys without hydronephrosis. 2. Prostatomegaly. Reviewed, dictated and finalized at location B. [facility]
--- OUTSIDE RECORDS SUMMARY | 2024-10-05 15:54 | XMS_ITS | Clinical Summary ---
Author Organization [facility] Address [address] [place] [address] Care Team Providers Care Curb Machine Operator Name Role Phone Unavailable Primary Care Provider Unavailabl e Source Comments [facility],non-owned Affiliates and Associated Physician Practices is amultiple site organization consisting of ambulatory clinics and hospital sitesin [place], [place], [place] and [place]. This disclosure is being madepursuant to the Care Everywhere program and may not contain all information available regarding this patient. Last updated 18.[facility] Allergies No known active allergies Immunizations Name [...] complete this topic GERARDOJERSEY Personal/Family 1940 [address] [place] [address] [place] Gerardo Personal/Family 1940 [address] [place] [address]
--- OUTSIDE RECORDS SUMMARY | 2024-10-05 15:54 | XMS_ITS | Encounter Summary ---
Author Organization [facility] Address [address] [place] [address] Care Team Providers Care Newspaper Editor Managing Name Role Phone Unavailable Primary Care Provider Unavailabl e Encounter Details Date Type Department Care Team (Late st Contact Info) Description 07/20/2023 Lab Requisition [facility] - DermPath Lab [address] [facility] [place] [address] Car Alexander MD [facility] DERMATOLOGY [address] [place] [phone] Neoplasm of uncertain behavior of skin [...] Diagnosis Comments DERMATOPATHOLOGY Routine 07/20/2023 3:33 AM PROCESS PLANNER Neoplasm of uncertain behavior of skin documented in this encounter Results * DERMATOPATHOLOGY (07/20/2023 3:33 AM PROCESS PLANNER) Case Report Dermatopathology Report Case: [id number] Authorizing Provider: Car Alexander MD Collected: 07/20/2023 03:33 AM Ordering Location: [facility] DermPath Lab Received: 07/20/2023 01:50 PM Pathologist: Janine Acevedo MD Specimen: Skin, left superior medial malar cheek 12:59 PM PROCESS PLANNER DERMATOPATHOLOGY LABORATORY Final Diagnosis Specimen A. SKIN, left superior medial malar cheek: BASAL CELL CARCINOMA, NODULAR TYPE (C44.319) 3 12:59 PM PROCESS PLANNER DERMATOPATHOLOGY LABORATORY Clinical History Neoplasm of Uncertain Behavior vs. Basal Cell Carcinoma 3 12:59 PM PROCESS PLANNER DERMATOPATHOLOGY LABORATORY Gross Description Specimen A: Received is one formalin filled container labeled with the patient's name and designated left superior medial malar cheek. The specimen consists of a shave biopsy measuring 7x6x2 mm. Jar 0. 3 12:59 PM [facility] Microscopic Description Specimen A. SKIN, left superior medial malar cheek: Within the dermis there are aggregates of basaloid cells with a high nuclear to cytoplasmic ratio and peripheral palisading. 3 12:59 PM PROCESS PLANNER DERMATOPATHOLOGY LABORATORY Disclaimer An external and internal positive and negative controls are appropriate for the histochemical, immunohistochemical and immunofluorescence stain(s) in this case (if any), except where stated explicitly. The performance characteristics of the stain(s) cited in this report were developed and its performance characteristic determined by the Dermatopathology Laboratory at [facility], directed by Dr. Marylu Yu. These tests need not be, and therefore are not, approved by the [place] Food and Drug Administration. The tests are used for clinical purposes. Billing Codes Specimen Charges Stain Charges 51940 1 3 12:59 PM PROCESS PLANNER DERMATOPATHOLOGY LABORATORY Embedded Images 3 12:59 PM PROCESS PLANNER DERMATOPATHOLOGY LABORATORY Pathology/Cytolo gy TISSUE SPECIMEN FROM SKIN / Unknown 07/20/2023 3:33 AM PROCESS PLANNER 07/20/2023 1:50 PM PROCESS PLANNER Car Alexander MD LAB - PATHOLOGY/CYTO LOGY ORDERABLES DERMATOPATHOLOGY LABORATORY [facility] - Department of Dermatology [address], [address] [phone] documented in this encounter Visit Diagnoses Diagnosis Neoplasm of uncertain behavior of skin documented in this encounter
--- OUTSIDE RECORDS SUMMARY | 2024-10-05 15:54 | XMS_ITS | Encounter Summary ---
Author Organization [facility] Address [address] [facility] [place] [address] Care Team Providers Care Catcher Plug Name Role Phone Unavailable Primary Care Provider Unavailabl e Encounter Details Date Type Department Care Team (Late st Contact Info) Description 04/05/2024 Lab Requisition [facility] - DermPath Lab [address] [facility], [place] [address] Frida Alexander APRN-CNP [facility] DERMATOLOGY [address] [place] [phone] Neoplasm of uncertain behavior of skin [...] AM CDT) Case Report Dermatopathology Report Case: [id number] Authorizing Provider: Frida Alexander, Collected: 04/05/2024 12:00 AM ORAL AND MAXILLOFACIAL SURGERY-SUPERVISOR PARTIAL DENTURE DEPARTMENT Ordering Location: [facility] - Received: 04/06/2024 12:16 PM [...] measuring 7x5x3 mm. Jar 0. 4:25 PM [facility] DERMATOPATHOLOGY LABORATORY Microscopic Description Specimen A. [...] cytoplasmic ratio and peripheral palisading. 4:25 PM [facility] DERMATOPATHOLOGY LABORATORY Disclaimer An external and internal positive and negative controls are appropriate for the histochemical, immunohistochemical and immunofluorescence stain(s) in this case (if any), except where stated explicitly. The performance characteristics of the stain(s) cited in this report were developed and its performance characteristic determined by the Dermatopathology Laboratory at [facility], directed by Dr. Marylu Yu. These tests need not be, and therefore are not, approved by the [place] Food and Drug Administration. The tests are used for clinical purposes. Billing Codes Specimen Charges Stain Charges 59809 44294 1 1 4:25 PM CDT DERMATOPATHOLOGY LABORATORY Embedded Images 4:25 PM [facility] DERMATOPATHOLOGY LABORATORY Pathology/Cytology TISSUE SPECIMEN FROM SKIN / Unknown 04/05/2024 04/06/2024 12:16 PM CDT Miscellaneous samples (specimen) TISSUE SPECIMEN FROM SKIN / Unknown 04/05/2024 04/06/2024 12:16 PM CDT Frida Alexander ORAL AND MAXILLOFACIAL SURGERY-SUPERVISOR PARTIAL DENTURE DEPARTMENT LAB - PATH OLOGY/CYTOLOGY ORDERABLES DERMATOPATHOLOGY LABORATORY [facility] - Department of Dermatology [facility] Specialized Medicine [address] [place] [address], [address] [phone] documented in this encounter Visit Diagnoses Diagnosis Neoplasm of uncertain behavior of skin documented in this encounter
--- OUTSIDE RECORDS SUMMARY | 2024-10-05 15:54 | XMS_ITS | Referral Summary ---
Author Organization [facility] Address [address] [place] [address] Care Team Providers Care Clinical Liaison Name Role Phone Unavailable Primary Care Provider Unavailabl e Source Comments [facility],non-owned Affiliates and Associated Physician Practices is amultiple site organization consisting of ambulatory clinics and hospital sitesin [place], [place], [place] and [place]. This disclosure is being madepursuant to the Care Everywhere program and may not contain all information available regarding this patient. Last updated 18.[facility] Allergies No known active allergies Immunizations Name [...] on file JERSEY GERARDO Personal/Family 1940 [address] [place] [address] [place] Gerardo Personal/Family 1940 [address] [place] [address]
--- OUTSIDE RECORDS SUMMARY | 2024-10-05 15:54 | XMS_ITS | Patient Health Summary ---
Author Organization [facility] Address [address] [place] [address] Care Team Providers Care Assembling Machine Operator Name Role Phone Unavailable Primary Care Provider Unavailabl e Note from [facility],non-owned Affiliates and Associated Physician Practices is amultiple site organization consisting of ambulatory clinics and hospital sitesin [place], [place], [place] and [place]. This disclosure is being madepursuant to the Care Everywhere program and may not contain all information available regarding this patient. Last updated 18.[facility] Allergies No known active allergies Immunizations * [...] is included. Case Report Dermatopathology Report Case: [id number] Authorizing Provider: Frida Alexander, Collected: 04/05/2024 12:00 AM MEDICAL CODING AUDITOR-AGRICULTURAL CONSULTANT Ordering Location: [facility] - Received: 04/06/2024 12:16 PM DermPath Lab Pathologist: Jackelin Douglas MD Specimens: A) - Skin, right medial cheek B) - Skin, right ala 4:25 PM [facility] DERMATOPATHOLOGY LABORATORY Final Diagnosis Specimen A. SKIN, right medial cheek: SEBORRHEIC KERATOSIS, IRRITATED AND INFLAMED, SUPERFICIAL PORTIONS OF (L82.0) (see microscopic description) Specimen B. SKIN, right ala: BASAL CELL CARCINOMA, NODULAR TYPE (C44.311) 4:25 PM T DERMATOPATHOLOGY LABORATORY Clinical History A-B: Basal Cell Carcinoma 4:25 PM [facility] DERMATOPATHOLOGY LABORATORY Gross Description Specimen A: [...] measuring 7x5x3 mm. Jar 0. 4:25 PM [facility] DERMATOPATHOLOGY LABORATORY Microscopic Description Specimen A. [...] cytoplasmic ratio and peripheral palisading. 4:25 PM [facility] DERMATOPATHOLOGY LABORATORY Disclaimer An external and internal positive and negative controls are appropriate for the histochemical, immunohistochemical and immunofluorescence stain(s) in this case (if any), except where stated explicitly. The performance characteristics of the stain(s) cited in this report were developed and its performance characteristic determined by the Dermatopathology Laboratory at [facility], directed by Dr. Marylu Yu. These tests need not be, and therefore are not, approved by the [place] Food and Drug Administration. The tests are used for clinical purposes. Billing Codes Specimen Charges Stain Charges 34311 46484 1 1 4:25 PM T DERMATOPATHOLOGY LABORATORY Embedded Images 4:25 PM CDT DERMATOPATHOLOGY LABORATORY Pathology/Cytology TISSUE SPECIMEN FROM SKIN / Unknown 04/05/2024 04/06/2024 12:16 PM CDT Miscellaneous samples (specimen) TISSUE SPECIMEN FROM SKIN / Unknown 04/05/2024 04/06/2024 12:16 PM CDT Frida Alexander MEDICAL CODING AUDITOR-AGRICULTURAL CONSULTANT LAB - PATH OLOGY/CYTOLOGY ORDERABLES DERMATOPATHOLOGY LABORATORY [facility] - Department of Dermatology [facility] Specialized Medicine [address] [place] [address], [address] [phone]
== END 2024-10-05 14:16 | disposition home or self-care (01) ==
PROVIDERS: PCP Family Medicine; Visit Provider Physician Assistant
DX: E87.5 Hyperkalemia (principal); N17.9 Acute kidney failure, unspecified
CPT/HCPCS: 76775

== ENCOUNTER 2024-11-15 14:02 | Outpatient (CLI) | payer MEDICARE, SELFPAY ==
[2024-11-15 15:02] LABS: Anion Gap 10 mmol/L (4-12); Blood Urea Nitrogen 26 mg/dL (9-20); Calcium 9.1 mg/dL (8.4-10.2); Carbon Dioxide 28 mmol/L (22-30); Chloride 101 mmol/L (98-107); Estimated Glomerular Filt Rate 50; Glucose 108 mg/dL (65-110); Potassium 4.6 mmol/L (3.4-5.0); Sodium 139 mmol/L (137-145)
--- OUTSIDE RECORDS SUMMARY | 2024-11-15 15:11 | XMS_ITS | Encounter Summary ---
Author Organization [facility] Address [address] [place] [address] Care Team Providers Care X Ray Tech Name Role Phone Unavailable Primary Care Provider Unavailabl e Encounter Details Date Type Department Care Team (Late st Contact Info) Description 04/05/2024 Lab Requisition [facility] - DermPath Lab [address] [facility], [place] [address] Frida Alexander APRN-CNP [facility] DERMATOLOGY [address] [place] [phone] Neoplasm of uncertain behavior of skin Social History Tobacco Use Types Packs/Day Years Used Date Smoking Tobacco: Never Assessed Sex and Gender Information Value Date Recorded Sex Assigned at Not on file Legal Sex Male 1:56 PM CDT Gender Identity Not on file Sexual Orientation Not on file documented as of this encounter Plan of Treatment Not on file documented as of this encounter Procedures Procedure Name Priority Date/Time Associated Diagnosis Comments DERMATOPATHOLOGY Routine 04/05/2024 12:0 0 AM CDT Neoplasm of uncertain behavior of skin documented in this encounter Results * DERMATOPATHOLOGY (04/05/2024 12:00 AM CDT) Case Report Dermatopathology Report Case: [id number] Authorizing Provider: Frida Alexander, Collected: 04/05/2024 12:00 AM TRACK SUBWAY REPAIR SUPERVISOR-TAIL TRIMMER Ordering Location: [facility] - Received: 04/06/2024 12:16 PM DermPath Lab Pathologist: Jackelin Douglas MD Specimens: A) - Skin, right medial cheek B) - Skin, right ala 4:25 PM T DERMATOPATHOLOGY LABORATORY Final Diagnosis Specimen A. SKIN, right medial cheek: SEBORRHEIC KERATOSIS, IRRITATED AND INFLAMED, SUPERFICIAL PORTIONS OF (L82.0) (see microscopic description) Specimen B. SKIN, right ala: BASAL CELL CARCINOMA, NODULAR TYPE (C44.311) 4:25 PM T DERMATOPATHOLOGY LABORATORY Clinical History A-B: Basal Cell Carcinoma 4:25 PM [facility] DERMATOPATHOLOGY LABORATORY Gross Description Specimen A: Received [...] measuring 7x5x3 mm. Jar 0. 4:25 PM [facility] DERMATOPATHOLOGY LABORATORY Microscopic Description Specimen A. SKIN, [...] cytoplasmic ratio and peripheral palisading. 4:25 PM [facility] DERMATOPATHOLOGY LABORATORY Disclaimer An external and internal positive and negative controls are appropriate for the histochemical, immunohistochemical and immunofluorescence stain(s) in this case (if any), except where stated explicitly. The performance characteristics of the stain(s) cited in this report were developed and its performance characteristic determined by the Dermatopathology Laboratory at [facility], directed by Dr. Marylu Yu. These tests need not be, and therefore are not, approved by the [place] Food and Drug Administration. The tests are used for clinical purposes. Billing Codes Specimen Charges Stain Charges 50085 75526 1 1 4:25 PM T DERMATOPATHOLOGY LABORATORY Embedded Images 4:25 PM T DERMATOPATHOLOGY LABORATORY Pathology/Cytology TISSUE SPECIMEN FROM SKIN / Unknown 04/05/2024 04/06/2024 12:16 PM CDT Miscellaneous samples (specimen) TISSUE SPECIMEN FROM SKIN / Unknown 04/05/2024 04/06/2024 12:16 PM CDT us Frida Alexander TRACK SUBWAY REPAIR SUPERVISOR-TAIL TRIMMER LAB - PATHOLOGY/CY TOLOGY ORDERABLES Final Result DERMATOPATHOLOGY LABORATORY [facility] - Department of [facility]ology [facility] [address] [place] [address], [address] [phone] documented in this encounter Visit Diagnoses Diagnosis Neoplasm of uncertain behavior of skin documented in this encounter
--- OUTSIDE RECORDS SUMMARY | 2024-11-15 15:11 | XMS_ITS | Encounter Summary ---
Author Organization [facility] Address [address] [facility] [place] [address] Care Team Providers Care Renal Technician Name Role Phone Unavailable Primary Care Provider Unavailabl e Encounter Details Date Type Department Care Team (Late st Contact Info) Description 07/20/2023 Lab Requisition [facility] - DermPath Lab [address] [facility] [place] [address] Car Alexander MD [facility] DERMATOLOGY [address] [place] [phone] Neoplasm of uncertain behavior of skin [...] Diagnosis Comments DERMATOPATHOLOGY Routine 07/20/2023 3:33 AM IT PROGRAM ENGAGEMENT DIRECTOR Neoplasm of uncertain behavior of skin documented in this encounter Results * DERMATOPATHOLOGY (07/20/2023 3:33 AM IT PROGRAM ENGAGEMENT DIRECTOR) Case Report Dermatopathology Report Case: [id number] Authorizing Provider: Car Alexander MD Collected: 07/20/2023 03:33 AM Ordering Location: [facility] DermPath Lab Received: 07/20/2023 01:50 PM Pathologist: Janine Acevedo MD Specimen: Skin, left superior medial malar cheek 12:59 PM IT PROGRAM ENGAGEMENT DIRECTOR DERMATOPATHOLOGY LABORATORY Final Diagnosis Specimen A. 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 Basal Cell Carcinoma 3 12:59 PM IT PROGRAM ENGAGEMENT DIRECTOR DERMATOPATHOLOGY LABORATORY Gross Description Specimen A: Received is one formalin filled container labeled with the patient's name and designated left superior medial malar cheek. The specimen consists of a shave biopsy measuring 7x6x2 mm. Jar 0. 3 12:59 PM IT PROGRAM ENGAGEMENT DIRECTOR DERMATOPATHOLOGY LABORATORY Microscopic Description Specimen A. SKIN, left superior medial malar cheek: Within the dermis there are aggregates of basaloid cells with a high nuclear to cytoplasmic ratio and peripheral palisading. 3 12:59 PM IT PROGRAM ENGAGEMENT DIRECTOR DERMATOPATHOLOGY LABORATORY Disclaimer An external and internal positive and negative controls are appropriate for the histochemical, immunohistochemical and immunofluorescence stain(s) in this case (if any), except where stated explicitly. The performance characteristics of the stain(s) cited in this report were developed and its performance characteristic determined by the Dermatopathology Laboratory at [facility], directed by Dr. Marylu Yu. These tests need not be, and therefore are not, approved by the [place] Food and Drug Administration. The tests are used for clinical purposes. Billing Codes Specimen Charges Stain Charges 88161 1 3 12:59 PM IT PROGRAM ENGAGEMENT DIRECTOR DERMATOPATHOLOGY LABORATORY Embedded Images 3 12:59 PM IT PROGRAM ENGAGEMENT DIRECTOR DERMATOPATHOLOGY LABORATORY Pathology/Cytolo gy TISSUE SPECIMEN FROM SKIN / Unknown 07/20/2023 3:33 AM IT PROGRAM ENGAGEMENT DIRECTOR 07/20/2023 1:50 PM IT PROGRAM ENGAGEMENT DIRECTOR us Car Alexander MD LAB - PATHOLOGY/CYTOLOGY FREDRICK BARRETT Final Result DERMATOPATHOLOGY LABORATORY [facility] - Department of Dermatology [address], [address] [phone] documented in this encounter Visit Diagnoses Diagnosis Neoplasm of uncertain behavior of skin documented in this encounter
--- OUTSIDE RECORDS SUMMARY | 2024-11-15 15:11 | XMS_ITS | Clinical Summary ---
Author Organization [facility] Address [address] [place] [address] Care Team Providers Care Canteen Operator Name Role Phone Unavailable Primary Care Provider Unavailabl e Source Comments [facility],non-owned Affiliates and Associated Physician Practices is amultiple site organization consisting of ambulatory clinics and hospital sitesin [place], [place], [place] and [place]. This disclosure is being madepursuant to the Care Everywhere program and may not contain all information available regarding this patient. Last updated 18.[facility] Allergies No known active allergies Immunizations Immunization Administration Dates Next Due INFLUENZA VACCINE, HIGH-DOSE [...] VACCINE ( - 2023-2 5 season) 2024 DEPRESSION SCREENING 08/03/2024 MEDICARE AWV CALENDAR YEAR 2024 INFLUENZA VACCINE (Season Ended) 2025 05/06/20 18 HEPATITIS B VACCINE Aged Out No longe r eligible based on patient's age to complete this topic HIB VACCINE Aged Out No longer eligi ble based on patient's age to complete this topic HPV VACCINE Aged Out No longer eligi ble based on patient's age to complete this topic MENINGOCOCCAL (Group B) VACC INE SHARED DECISION-MAKING Aged Out No longer eligibl e based on patient's age to complete this topic MENINGOCOCCAL GROUPS A/C/Y/W VACCINE Aged Out No longer eligible b ased on patient's age to complete this topic Insurance [facility] MEDIC[facility] ADV HMO & PPO MEDICARE MEDICARE MEDICARE MEDICARE [id number] [place], [place] [address] [address]
== END 2024-11-15 14:03 | disposition home or self-care (01) ==
LOC: ANHLAB 14:04
PROVIDERS: PCP Family Medicine; Visit Provider Physician Assistant
DX: E87.5 Hyperkalemia (principal)
CPT/HCPCS: 36415; 80048

== ENCOUNTER 2024-11-30 09:12 | Outpatient (CLI) | payer MEDICARE, SELFPAY ==
--- NOTE | 2024-11-30 09:27 | ECG_ITS ---
Test Date: 2024-11-30 09:36:24 Measurements Intervals Reliance Rate: 75 P: 21 AR: 156 QRS: -71 QRSD: 114 T: 22 QT: 372 QTc: 417 Interpretive Statements SINUS RHYTHM LEFT AXIS DEVIATION INTRAVENTRICULAR CONDUCTION DELAY DELAYED PRECORDIAL R/S TRANSITION BASELINE ARTIFACT- I, II, III, AVR, AVL,A VF, V1-V6 BORDERLINE ECG No previous ECG available for comparison Electronically Signed On 11-30-2024 09:45:53 CDT by Víctor Hicks D.O.
--- OUTSIDE RECORDS SUMMARY | 2024-11-30 09:50 | XMS_ITS | Encounter Summary ---
Author Organization [facility] Address [address] [facility] [place] [address] Care Team Providers Care Casino Surveillance Officer Name Role Phone Unavailable Primary Care Provider Unavailabl e Encounter Details Date Type Department Care Team (Late st Contact Info) Description 07/20/2023 Lab Requisition [facility] - DermPath Lab [address] [facility], [place] [address] Car Alexander MD [facility] DERMATOLOGY [address] [place] [phone] Neoplasm of uncertain behavior of skin [...] Diagnosis Comments DERMATOPATHOLOGY Routine 07/20/2023 3:33 AM SAP ABAP PROGRAMMER Neoplasm of uncertain behavior of skin documented in this encounter Results * DERMATOPATHOLOGY (07/20/2023 3:33 AM SAP ABAP PROGRAMMER) Case Report Dermatopathology Report Case: [id number] Authorizing Provider: Car Alexander MD Collected: 07/20/2023 03:33 AM Ordering Location: [facility] DermPath Lab Received: 07/20/2023 01:50 PM Pathologist: Janine Acevedo MD Specimen: Skin, left superior medial malar cheek 12:59 PM SAP ABAP PROGRAMMER DERMATOPATHOLOGY LABORATORY Final Diagnosis Specimen A. 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 Basal Cell Carcinoma 3 12:59 PM SAP ABAP PROGRAMMER DERMATOPATHOLOGY LABORATORY Gross Description Specimen A: Received is one formalin filled container labeled with the patient's name and designated left superior medial malar cheek. The specimen consists of a shave biopsy measuring 7x6x2 mm. Jar 0. 3 12:59 PM SAP ABAP PROGRAMMER DERMATOPATHOLOGY LABORATORY Microscopic Description Specimen A. SKIN, left superior medial malar cheek: Within the dermis there are aggregates of basaloid cells with a high nuclear to cytoplasmic ratio and peripheral palisading. 3 12:59 PM SAP ABAP PROGRAMMER DERMATOPATHOLOGY LABORATORY Disclaimer An external and internal positive and negative controls are appropriate for the histochemical, immunohistochemical and immunofluorescence stain(s) in this case (if any), except where stated explicitly. The performance characteristics of the stain(s) cited in this report were developed and its performance characteristic determined by the Dermatopathology Laboratory at [facility], directed by Dr. Marylu Yu. These tests need not be, and therefore are not, approved by the [place] Food and Drug Administration. The tests are used for clinical purposes. Billing Codes Specimen Charges Stain Charges 73644 1 3 12:59 PM SAP ABAP PROGRAMMER DERMATOPATHOLOGY LABORATORY Embedded Images 3 12:59 PM SAP ABAP PROGRAMMER DERMATOPATHOLOGY LABORATORY Pathology/Cytolo gy TISSUE SPECIMEN FROM SKIN / Unknown 07/20/2023 3:33 AM SAP ABAP PROGRAMMER 07/20/2023 1:50 PM SAP ABAP PROGRAMMER us Car Alexander MD LAB - PATHOLOGY/CYTOLOGY [facility] Final Result DERMATOPATHOLOGY LABORATORY [facility] - Department of Dermatology [address], [address] [phone] documented in this encounter Visit Diagnoses Diagnosis Neoplasm of uncertain behavior of skin documented in this encounter
--- OUTSIDE RECORDS SUMMARY | 2024-11-30 09:50 | XMS_ITS | Clinical Summary ---
Author Organization [facility] Address [address] [place] [address] Care Team Providers Care Stage Setting Painter Apprentice Name Role Phone Unavailable Primary Care Provider Unavailabl e Source Comments [facility],non-owned Affiliates and Associated Physician Practices is amultiple site organization consisting of ambulatory clinics and hospital sitesin [place], [place], [place] and [place]. This disclosure is being madepursuant to the Care Everywhere program and may not contain all information available regarding this patient. Last updated 18.[facility] Allergies No known active allergies Immunizations Immunization [...] patient's age to complete this topic Insurance [facility] MEDICARE ADV HMO & PPO MEDICARE MEDICARE MEDICARE MEDICARE [id number] [place], [place] [address] [place] [address]
--- OUTSIDE RECORDS SUMMARY | 2024-11-30 09:50 | XMS_ITS | Encounter Summary ---
Author Organization [facility] Address [address] [facility] [place] [address] Care Team Providers Care Youth Teacher Name Role Phone Unavailable Primary Care Provider Unavailabl e Encounter Details Date Type Department Care Team (Late st Contact Info) Description 04/05/2024 Lab Requisition [facility] - DermPath Lab [address] [facility], [place] [address] Frida Alexander APRN-CNP [facility] DERMATOLOGY [address] [place] [phone] Neoplasm of uncertain behavior of skin [...] AM CDT) Case Report Dermatopathology Report Case: [id number] Authorizing Provider: Frida Alexander, Collected: 04/05/2024 12:00 AM WAITER/WAITRESS FIRST CLASS-WAX POURER Ordering Location: [facility] Physician [facility] - Received: 04/06/2024 12:16 PM DermPath Lab [...] History A-B: Basal Cell Carcinoma 4:25 PM [facility] DERMATOPATHOLOGY LABORATORY Gross Description Specimen A: Received [...] measuring 7x5x3 mm. Jar 0. 4:25 PM [facility] DERMATOPATHOLOGY LABORATORY Microscopic Description Specimen A. SKIN, [...] cytoplasmic ratio and peripheral palisading. 4:25 PM [facility] DERMATOPATHOLOGY LABORATORY Disclaimer An external and internal positive and negative controls are appropriate for the histochemical, immunohistochemical and immunofluorescence stain(s) in this case (if any), except where stated explicitly. The performance characteristics of the stain(s) cited in this report were developed and its performance characteristic determined by the Dermatopathology Laboratory at [facility], directed by Dr. Marylu Yu. These tests need not be, and therefore are not, approved by the [place] Food and Drug Administration. The tests are used for clinical purposes. Billing Codes Specimen Charges Stain Charges 29320 83967 1 1 4:25 PM T DERMATOPATHOLOGY LABORATORY Embedded Images 4:25 PM T DERMATOPATHOLOGY LABORATORY Pathology/Cytology TISSUE SPECIMEN FROM SKIN / Unknown 04/05/2024 04/06/2024 12:16 PM CDT Miscellaneous samples (specimen) TISSUE SPECIMEN FROM SKIN / Unknown 04/05/2024 04/06/2024 12:16 PM CDT us Frida Alexander WAITER/WAITRESS FIRST CLASS-WAX POURER LAB - PATHOLOGY/CY TOLOGY ORDERABLES Final Result DERMATOPATHOLOGY LABORATORY [facility] - Department of Dermatology [facility] [address] [place] [address], [address] [phone] documented in this encounter Visit Diagnoses Diagnosis Neoplasm of uncertain behavior of skin documented in this encounter
[2024-11-30 10:09] LABS: INR 0.9; Prothrombin Time 12.8 Seconds (11.1-14.7)
[2024-11-30 10:10] LABS: Partial Thromboplastin Time 29.9 Seconds (22.3-36.8)
== END 2024-11-30 09:13 | disposition home or self-care (01) ==
LOC: ANHSURGERY 09:16
PROVIDERS: Anesthesiology; PCP Family Medicine; Visit Provider Surgery
DX: Z01.818 Encounter for other preprocedural examination (principal); N28.9 Disorder of kidney and ureter, unspecified; I10 Essential (primary) hypertension; E78.5 Hyperlipidemia, unspecified; K40.90 Unilateral inguinal hernia, without obstruction or gangrene, not specified as recurrent
CPT/HCPCS: 36415; 85610; 85730; 86850; 86900; 86901; 93005

== ENCOUNTER 2024-12-06 00:19 | Day surgery (SDC) | payer MEDICARE, SELFPAY ==
[2024-11-24 12:58] VITALS: BMI 27.0
--- NOTE | 2024-11-24 13:06 | PC.NURSE ---
Report to the Outpatient Waiting Room, entrance under the green pavilion located off [facility], at time _1000am on date _12/06/24 . Planned Procedure Time: _1200pm .? Time changes happen often and if your time is changed the preop area will call you the afternoon before. - You and your visitor will be asked to self-screen and do not enter if you have any COVID symptoms. Please call surgeon if you need to reschedule. - A mask is optional within the hospital at this time. Patients may have clear liquids (water, carbonated beverages, clear teas, apple juice) until 3 hours prior to surgery with a maximum of 20 ounces. - No food from midnight until time of surgery and no smoking, or chewing tobacco (or any form of nicotine). No chewing gum, candy or mints. (0900am) Take only the following medications with a SIP of water on the morning of surgery: Amlodipine DO NOT STOP ANY OF YOUR OTHER PRESCRIPTION MEDICATIONS PRIOR TO SURGERY EXCEPT THE FOLLOWING Hold all vitamins and supplements for 3 days per anesthesiologist. HOLD YOUR FIBER GUMMIES- Date to take last dose is 12/02/24 Medications to discontinue per physician None Date to take last dose None Please no make-up, nail indonesian, hairspray, perfume, deodorant, or body powder the day of surgery.? No jewelry (including any body piercings) or valuables the day of surgery, leave them at home.? Please take a shower or bath the night before, or the morning of, surgery with an antibacterial soap.? Wear comfortable, loose fitting clothing.? If scrub per Surgeon preference, pt is aware. - Jewelry must be removed prior to entering the operating room.? Rings and piercings that are not removed may be cut off. - The hospital will not accept responsibility for valuables.? - Please leave all valuables, including medications, at home the day of surgery. If you are going home after surgery, a licensed bulk driver must drive you home.? - NO public transportation without another adult if you receive anesthesia. - We recommend that an adult stay with you for 24 hours following discharge. - We also recommend that you do not drive, make important decision, drink alcoholic beverages, or take any drugs that were not prescribed by your health care provider for at least 24 hours after your discharge time. Follow any additional instructions given to you from your surgeon. Telephone instructions given to __Patient & and asked if any additional questions and then verbalized understanding. Patient advised to call surgeon office or pre surgery nurse liaison [phone] if any additional questions.
[2024-12-06] VITALS (11 sets, daily range): BP systolic 126–155; BP diastolic 56–76; PULSE 70–88; RESP 11–18; TEMP 36.4–37.1; O2SAT 97–100
--- OUTSIDE RECORDS SUMMARY | 2024-12-06 00:22 | XMS_ITS | Clinical Summary ---
Author Organization [facility] Address [address] [place] [address] Care Team Providers Care Migratory Farm Hand Name Role Phone Unavailable Primary Care Provider Unavailabl e Source Comments [facility],non-owned Affiliates and Associated Physician Practices is amultiple site organization consisting of ambulatory clinics and hospital sitesin [place], [place], [place] and [place]. This disclosure is being madepursuant to the Care Everywhere program and may not contain all information available regarding this patient. Last updated 18.[facility] Allergies No known active allergies Immunizations Immunization [...] patient's age to complete this topic Insurance [facility] MEDICARE ADV HMO & PPO MEDICARE MEDICARE MEDICARE MEDICARE [id number] [place], [place] [address]
--- OUTSIDE RECORDS SUMMARY | 2024-12-06 00:22 | XMS_ITS | Encounter Summary ---
Author Organization [facility] Address [address] [place] [address] Care Team Providers Care Law Office Manager Name Role Phone Unavailable Primary Care Provider Unavailabl e Encounter Details Date Type Department Care Team (Late st Contact Info) Description 07/20/2023 Lab Requisition [facility] - DermPath Lab [address] [facility] [place] [address] Car Alexander MD [facility] DERMATOLOGY [address] [place] [phone] Neoplasm of uncertain behavior of skin [...] Diagnosis Comments DERMATOPATHOLOGY Routine 07/20/2023 3:33 AM [facility] Neoplasm of uncertain behavior of skin documented in this encounter Results * DERMATOPATHOLOGY (07/20/2023 3:33 AM CUFFER) Case Report Dermatopathology Report Case: [id number] Authorizing Provider: Car Alexander MD Collected: 07/20/2023 03:33 AM Ordering Location: [facility] DermPath Lab Received: 07/20/2023 01:50 PM Pathologist: Janine Acevedo MD Specimen: Skin, left superior medial malar cheek 12:59 PM [facility] DERMATOPATHOLOGY LABORATORY Final Diagnosis Specimen A. SKIN, left superior medial malar cheek: BASAL CELL CARCINOMA, NODULAR TYPE (C44.319) 3 12:59 PM [facility] DERMATOPATHOLOGY LABORATORY Clinical History Neoplasm of Uncertain Behavior vs. Basal Cell Carcinoma 3 12:59 PM [facility] DERMATOPATHOLOGY LABORATORY Gross Description Specimen A: Received is one formalin filled container labeled with the patient's name and designated left superior medial malar cheek. The specimen consists of a shave biopsy measuring 7x6x2 mm. Jar 0. 3 12:59 PM [facility] DERMATOPATHOLOGY LABORATORY Microscopic Description Specimen A. SKIN, left superior medial malar cheek: Within the dermis there are aggregates of basaloid cells with a high nuclear to cytoplasmic ratio and peripheral palisading. 3 12:59 PM [facility] DERMATOPATHOLOGY LABORATORY Disclaimer An external and internal positive and negative controls are appropriate for the histochemical, immunohistochemical and immunofluorescence stain(s) in this case (if any), except where stated explicitly. The performance characteristics of the stain(s) cited in this report were developed and its performance characteristic determined by the Dermatopathology Laboratory at [facility], directed by Dr. Marylu Yu. These tests need not be, and therefore are not, approved by the [place] Food and Drug Administration. The tests are used for clinical purposes. Billing Codes Specimen Charges Stain Charges 09410 1 3 12:59 PM [facility] DERMATOPATHOLOGY LABORATORY Embedded Images 3 12:59 PM [facility] DERMATOPATHOLOGY LABORATORY Pathology/Cytolo gy TISSUE SPECIMEN FROM SKIN / Unknown 07/20/2023 3:33 AM [facility] 07/20/2023 1:50 PM CUFFER us Car Alexander MD LAB - PATHOLOGY/CYTOLOGY [facility] Final Result DERMATOPATHOLOGY LABORATORY [facility] - Department of Dermatology [address], [address] [phone] documented in this encounter Visit Diagnoses Diagnosis Neoplasm of uncertain behavior of skin documented in this encounter
--- OUTSIDE RECORDS SUMMARY | 2024-12-06 00:22 | XMS_ITS | Encounter Summary ---
Author Organization [facility] Address [address] [place] [address] Care Team Providers Care Mercury Washer Name Role Phone Unavailable Primary Care Provider Unavailabl e Encounter Details Date Type Department Care Team (Late st Contact Info) Description 04/05/2024 Lab Requisition [facility] - DermPath Lab [address] [facility], [place] [address] Frida Alexander APRN-CNP [facility] DERMATOLOGY [address] [place] [phone] Neoplasm of uncertain behavior of skin [...] AM CDT) Case Report Dermatopathology Report Case: [id number] Authorizing Provider: Frida Alexander, Collected: 04/05/2024 12:00 AM CAM MILLING MACHINE OPERATOR-ROLL OPERATOR Ordering Location: [facility] Physician [facility] - Received: 04/06/2024 12:16 PM DermPath Lab [...] History A-B: Basal Cell Carcinoma 4:[address] [facility] DERMATOPATHOLOGY LABORATORY Gross Description Specimen A: Received [...] 7x5x3 mm. Jar 0. 4:[address] [facility] DERMATOPATHOLOGY LABORATORY Microscopic Description Specimen A. SKIN, [...] ratio and peripheral palisading. 4:[address] [facility] DERMATOPATHOLOGY LABORATORY Disclaimer An external and internal positive and negative controls are appropriate for the histochemical, immunohistochemical and immunofluorescence stain(s) in this case (if any), except where stated explicitly. The performance characteristics of the stain(s) cited in this report were developed and its performance characteristic determined by the Dermatopathology Laboratory at [facility], directed by Dr. Marylu Yu. These tests need not be, and therefore are not, approved by the [place] Food and Drug Administration. The tests are used for clinical purposes. Billing Codes Specimen Charges Stain Charges 86131 62563 1 1 4:25 PM T DERMATOPATHOLOGY LABORATORY Embedded Images 4:25 PM T DERMATOPATHOLOGY LABORATORY Pathology/Cytology TISSUE SPECIMEN FROM SKIN / Unknown 04/05/2024 04/06/2024 12:16 PM CDT Miscellaneous samples (specimen) TISSUE SPECIMEN FROM SKIN / Unknown 04/05/2024 04/06/2024 12:16 PM CDT us Frida Alexander CAM MILLING MACHINE OPERATOR-ROLL OPERATOR LAB - PATHOLOGY/CY TOLOGY ORDERABLES Final Result DERMATOPATHOLOGY LABORATORY [facility] - Department of Dermatology [facility] [address] [place] [address], [address] [phone] documented in this encounter Visit Diagnoses Diagnosis Neoplasm of uncertain behavior of skin documented in this encounter
[2024-12-06] MEDS: ACETAMINOPHEN 500 MG TABLET 1000 MG PO (08:35)
[2024-12-06] MEDS: LACTATED RINGERS 1,000 ML 30 ML IV CONT ×2 (08:40→14:18)
[2024-12-06] MEDS: KETOROLAC 15 MG/ML VIAL (*BKC) IV PUSH (08:45)
--- NOTE | 2024-12-06 10:31 | WPDHPUPDATE1 ---
History and Physical Update Update Date/Time: 12/06/24 10:31 History and Physical has been reviewed, including an updated exam of the patient. There are NO changes in the patient's condition. Risks, benefits, and alternatives have been discussed and questions answered. Patient agrees to proceed with procedure.
--- NOTE | 2024-12-06 10:51 | WPDANESEPPF ---
Anes - Initial Pre Proc Eval Procedure: Operation Date: 12/06/24 10:30 Proposed Procedures p Laparoscopic Bilateral Inguinal Hernia Repair with Mesh, DaVinci Assisted - Linus Harper DO Date/Time: 12/06/24 10:51 Surgeon: Linus Harper DO Pre Op Diagnosis: Oleg Ing Hernia Patient Data Age: 83 Gender: M Height: 1.8 m Weight: 88 kg Last Vital Signs Temp 98.7 F 12/06/24 08:15 Pulse 75 12/06/24 08:15 Resp 16 12/06/24 08:15 BP 140/56 L 12/06/24 08:15 Pulse Ox 99 12/06/24 08:15 O2 Del Method Room Air 12/06/24 08:15 Allergies Allergy/AdvReac Type Severity Reaction Status Date / Time No Known Allergies Allergy Verified 12/06/24 09:40 Home Medications ?Medication ?Instructions ?Recorded ?Confirmed ?Type amlodipine 10 mg tablet 10 mg PO DAILY #90 tabs 10/31/24 12/06/24 Rx polydextrose 1.5 gram chewable 1.5 g PO DAILY 11/24/24 12/06/24 History tablet (Childrens Fiber Gummy Bear) Patient hx anesthesia problems: none Family hx anesthesia problems: none Results Review: All pre-operative results and documents have been reviewed as part of the pre-operative evaluation. [facility] Past Medical History Medical History (Updated 11/18/24 @ 10:36 by Manju Vital) Cancer Hypertension Arthritis HLD (hyperlipidemia) Essential hypertension Surgical History Surgical History (Updated 11/18/24 @ 09:58 by Ara Hernandez MA) Skin cancer (melanoma) 2017 Family History Family History (Updated 11/18/24 @ 09:48 by Rosa M Smith MA) Father Family history of cardiovascular disease Alcoholism Social History Social History (Updated 11/18/24 @ 09:49 by Rosa M Smith MA) Social History: Smoking packs per day: 1 Smoking cigarettes per day: 20.0 Years smoked: 22 Smoking pack-years: 22.00 Smoking status: Former smoker Tobacco type: cigarettes Second hand tobacco smoke exposure: No Smoking end date: 08/03/79 Alcohol intake: never Substance use: never Substance use type: does not use Do You Feel Safe in your Home?: Yes Lack of Transportation: No Lack of Food: Never True Current Housing: I Have Housing Concerned About Future Housing: No Difficulty Paying Gas/Electric Bills: No Difficulty Paying for Meds: No Currently Unemployed: No Education: High School Diploma/GED Living arrangements: with family Additional living arrangements comments: Occupation/Education: other Additional occupation/education comments: Rental Property Gender identity (if verbalized by the patient): Male Sexual Orientation (if Verbalized by the Patient): Straight or Heterosexual Spiritual care concerns: No Anes - Eval Final PreProcedure Day of Procedure 12/06/24 10:51 Patient weight: normal Heart: regular rate and rhythm Lungs: clear to auscultation Airway: Mallampati scale class II Neurological: alert and oriented Last oral intake: >/= 8 hours ASA classification: III Emergent: no Anesthetic plan: proceed Anesthesia type and monitoring: general ETT and standard monitoring Results Review: All pre-operative results and documents have been reviewed as part of the pre-operative evaluation. Informed Consent: The patient's anesthetic plan and its attendant risks and benefits were discussed with the patient/family/POA. Questions were solicited and answers provided to the satisfaction of the patient/family/POA.
[2024-12-06] MEDS: ceFAZolin 2 GM/D5W 50 ML 2 GM/50 ML BAG IVPB (11:04)
[2024-12-06] MEDS: BUPIVACAINE/EPINEPHRINE 0.5% 50 ML VIAL 30 ML INFILTRATE (11:38)
--- NOTE | 2024-12-06 13:25 | P.OP_ITS ---
Procedure Note - Detailed Date of Procedure 12/06/24 Pre-op Diagnosis Bilateral inguinal hernia Post-op Diagnosis Same (Indirect left inguinal hernia, direct right inguinal hernia) Procedure Performed Laparoscopic bilateral inguinal hernia repair with mesh, da Sirena assisted Surgeon Linus Harper, DO Anesthesia General and Local (0.5% bupivacaine with epinephrine) Indications This is an 83-year-old man who presents with a large left inguinal hernia and smaller right inguinal hernia. He had noticed a bulge in his left groin about 2-3 years ago. It has increased in size and now is extending down into his scrotum. He was found to have a large left inguinal hernia on physical exam and a smaller palpable right inguinal hernia. Discussions were made with the patient about treatment options and decision was made to proceed with robotic assisted laparoscopic bilateral inguinal hernia repair with mesh. Findings Robotic assisted laparoscopic bilateral inguinal hernia repair with mesh was performed. Upon inspecting the abdominal cavity, the patient was found to have a large indirect left inguinal hernia containing a loop of sigmoid colon. He also had a small direct right inguinal hernia. The hernia sac for the left inguinal hernia was very large and extended all the way into the scrotum. This took quite some time to completely dissect the hernia sac free. It was also very difficult to identify the cord contents due to how large the hernia sac was and how many surrounding adhesions there were. The testicular vessels were able to be identified but the vas was somewhat difficult to clearly see on the left. Eventually I was able to reduce the hernia sac and dissect the peritoneum far enough posteriorly to allow for mesh placement. An extra-large 3DMax mesh was placed on each side overlying the entire myopectineal orifice. No specimens were obtained for pathology. Description of Procedure Procedure as well as risks, benefits, and alternatives were discussed with the patient. Written consent was obtained and placed in chart prior to procedure. Patient was brought back to surgical suite. He was placed supine on operating table. Time-out was done to confirm patient and procedure. He was then intubated by Anesthesia Department. His abdomen was prepped and draped in sterile fashion using chlorhexidine prep. 0.5% bupivacaine with epinephrine was infiltrated at each location for incision. An 8 mm incision was made in the left lateral abdomen, and a 5 mm Optiview trocar was advanced through the abdominal layers under direct visualization. Once inside the abdominal cavity, carbon dioxide insufflation was used to create a pneumoperitoneum. A camera was inserted and the abdominal cavity was inspected. The patient was placed in slight Trendelenburg position. An 8 millimeter incision was made on the right lateral abdomen and an 8 millimeter trocar was inserted under direct visualization. Another 8 millimeter incision was made just superior to the umbilicus and an 8 millimeter trocar was inserted under direct visualization. The 5 mm port was then removed and this was replaced with another 8 mm robotic port. The robotic arms were brought up to the patient's bedside and secured to the ports. The camera and instruments were inserted. I then moved over to the robotic console and took control of the camera and instruments. After careful inspection of the abdominal cavity, I began scoring the peritoneum along the left lower quadrant using scissors with electrocautery. The preperitoneal plane was entered and this was carefully dissected caudally along the inferior epigastric vessels. Careful dissection with scissors with electrocautery and blunt dissection was used to continue this dissection. I dissected far enough laterally to allow for mesh placement, and also dissected medially to identify the pubic arch and Theron's ligament. The hernia sac was identified and carefully dissected posteriorly. The cord contents were also identified and the peritoneum was carefully dissected far enough posteriorly to allow for mesh placement. Once an adequate pocket was created, I then placed the mesh within the preperitoneal pocket and carefully unfolded it. The mesh was centered on the hernia defect with adequate overlap circumferentially. The inferior edge of the mesh was inspected to ensure that it was far enough away from the peritoneal edge. The mesh appeared in proper position overlying the entire myopectineal orifice. The mesh was secured using 3-0 Vicryl simple interrupted sutures in Theron's ligament, the superior medial edge, and superior lateral edge of the mesh. The peritoneum was then closed over the mesh using a 3-0 V-lock running absorbable suture. I then began scoring the peritoneum along the right lower quadrant using scissors with electrocautery. The preperitoneal plane was entered and this was carefully dissected caudally along the inferior epigastric vessels. Careful dissection with scissors with electrocautery and blunt dissection was used to continue this dissection. I dissected far enough laterally to allow for mesh placement, and also dissected medially to identify the pubic arch and Theron's ligament. The hernia sac was identified and carefully dissected posteriorly. The cord contents were also identified and the peritoneum was carefully dissected far enough posteriorly to allow for mesh p lacement. Once an adequate pocket was created, I then placed the mesh within the preperitoneal pocket and carefully unfolded it. The mesh was centered on the hernia defect with adequate overlap circumferentially. The inferior edge of the mesh was inspected to ensure that it was far enough away from the peritoneal edge. The mesh appeared in proper position overlying the entire myopectineal orifice. The mesh was secured using 3-0 Vicryl simple interrupted sutures in Theron's ligament, the superior medial edge, and superior lateral edge of the mesh. The peritoneum was then closed over the mesh using a 3-0 V-lock running absorbable suture. The robotic instruments were removed. The robotic arms were disengaged from the ports and moved away from the bedside. The patient was flattened out in bed, the ports were removed under direct visualization, and the pneumoperitoneum was released. The skin of the incisions was approximated using 4-0 Monocryl subcuticular suture, and Exofin glue was applied on top. The patient was awakened from anesthesia, extubated, and transferred to recovery. Implants Extra-large left and right 3DMax mid mesh Estimated Blood Loss 10 Complications No immediate complications Condition Stable Disposition Same day [facility] Billing Surgery - Charge Forward: Surgery Billing
[2024-12-06] MEDS: PROPARACAINE HCL 0.5% 15 ML OPHTH SOLN 1 DROP EACH EYE (14:53)
[2024-12-06] MEDS: oxyCODONE HCL (*CRX) 5 MG TAB IR PO (16:25)
== END 2024-12-06 16:27 | disposition home or self-care (01) ==
PROVIDERS: PCP Family Medicine; Visit Provider Surgery
PROC: 8E0Y4CZ Robotic Assisted Procedure of Lower Extremity, Percutaneous Endoscopic Approach (ICD-10-PCS; CPT 49650; principal; 2024-12-06 10:30)
DX: K40.20 Bilateral inguinal hernia, without obstruction or gangrene, not specified as recurrent (principal); Z87.891 Personal history of nicotine dependence
CPT/HCPCS: 49650; S2900; A9270; C1781; J0690; J1100; J1885; J2003; J2405; J2704; J3010; J7120

== ENCOUNTER 2025-03-20 07:58 | Outpatient (CLI) | payer MEDICARE, SELFPAY ==
--- OUTSIDE RECORDS SUMMARY | 2025-03-20 08:14 | XMS_ITS | Clinical Summary ---
Author Organization [facility] Address [address] [place] [address] Care Team Providers Care Field Gauger Name Role Phone Unavailable Primary Care Provider Unavailabl e Source Comments [facility],non-owned Affiliates and Associated Physician Practices is amultiple site organization consisting of ambulatory clinics and hospital sitesin [place], [place]. This disclosure is being madepursuant to the Care Everywhere program and may not contain all information available regarding this patient. Last updated 18.[facility] Allergies No known active allergies Immunizations Immunization [...] MEDICARE AWV CALENDAR YEAR 2024 INFLUENZA VACCINE (#1) 2025 05/06/2018 HEPATITIS B VACCINE Aged Out No longe [...] patient's age to complete this topic Insurance [facility] MEDICARE ADV HMO & PPO MEDICARE MEDICARE MEDICARE MEDICARE [id number] [place], [place] [address] [place] [address]
--- OUTSIDE RECORDS SUMMARY | 2025-03-20 08:14 | XMS_ITS | Encounter Summary ---
Author Organization [facility] Address [address] [place] [address] Care Team Providers Care Studio Designer Name Role Phone Unavailable Primary Care Provider Unavailabl e Encounter Details Date Type Department Care Team (Late st Contact Info) Description 07/20/2023 Lab Requisition [facility] - DermPath Lab [address] [place] [address] Car Alexander MD [facility] DERMATOLOGY [address] [place] [phone] Neoplasm of uncertain behavior of skin [...] Diagnosis Comments DERMATOPATHOLOGY Routine 07/20/2023 3:33 AM [facility] Neoplasm of uncertain behavior of skin documented in this encounter Results * DERMATOPATHOLOGY (07/20/2023 3:33 AM [facility]) Case Report Dermatopathology Report Case: [id number] Authorizing Provider: Car Alexander MD Collected: 07/20/2023 03:33 AM Ordering Location: [facility] DermPath Lab Received: 07/20/2023 01:50 PM Pathologist: Janine Acevedo MD Specimen: Skin, left superior medial malar cheek 12:59 PM [facility] Final Diagnosis Specimen A. SKIN, left superior medial malar cheek: BASAL CELL CARCINOMA, NODULAR TYPE (C44.319) 3 12:59 PM [facility] at [facility] Clinical History Neoplasm of Uncertain Behavior vs. Basal Cell Carcinoma 3 12:59 PM [facility] Gross Description Specimen A: Received is one formalin filled container labeled with the patient's name and designated left superior medial malar cheek. The specimen consists of a shave biopsy measuring 7x6x2 mm. Jar 0. 3 12:59 PM [facility] Microscopic Description Specimen A. SKIN, left superior medial malar cheek: Within the dermis there are aggregates of basaloid cells with a high nuclear to cytoplasmic ratio and peripheral palisading. 3 12:59 PM [facility] Disclaimer An external and internal positive and negative controls are appropriate for the histochemical, immunohistochemical and immunofluorescence stain(s) in this case (if any), except where stated explicitly. The performance characteristics of the stain(s) cited in this report were developed and its performance characteristic determined by the Dermatopathology Laboratory at [facility], directed by Dr. Marylu Yu. These tests need not be, and therefore are not, approved by the [place] Food and Drug Administration. The tests are used for clinical purposes. Billing Codes Specimen Charges Stain Charges 21274 1 3 12:59 PM [facility] DERMATOPATHOLOGY LABORATORY Embedded Images 3 12:59 PM [facility] DERMATOPATHOLOGY LABORATORY Pathology/Cytolo gy TISSUE SPECIMEN FROM SKIN / Unknown 07/20/2023 3:33 AM [facility] 07/20/2023 1:50 PM [facility] us Car Alexander MD LAB - PATHOLOGY/CYTOLOGY [facility] Final Result DERMATOPATHOLOGY LABORATORY [facility] - Department of Dermatology [address], [address] [phone] documented in this encounter Visit Diagnoses Diagnosis Neoplasm of uncertain behavior of skin documented in this encounter
--- OUTSIDE RECORDS SUMMARY | 2025-03-20 08:14 | XMS_ITS | Encounter Summary ---
Author Organization [facility] Address [address] [place] [address] Care Team Providers Care Government Teacher Name Role Phone Unavailable Primary Care Provider Unavailabl e Encounter Details Date Type Department Care Team (Late st Contact Info) Description 04/05/2024 Lab Requisition [facility] - DermPath Lab [address], [place] [address] Frida Alexander APRN-CNP [facility] DERMATOLOGY [address] [place] [phone] Neoplasm of uncertain behavior of skin [...] AM CDT) Case Report Dermatopathology Report Case: [id number] Authorizing Provider: Frida Alexander, Collected: 04/05/2024 12:00 AM UTILITY TECHNICIAN-NIGHT [facility] MAGISTRATE Ordering Location: [facility] Physician [facility] - Received: 04/06/2024 12:16 PM DermPath Lab Pathologist: Jackelin Douglas MD Specimens: A) - Skin, right medial cheek B) - Skin, right ala 4:25 PM [facility] DERMATOPATHOLOGY LABORATORY Final Diagnosis Specimen A. SKIN, right medial cheek: SEBORRHEIC KERATOSIS, IRRITATED AND INFLAMED, SUPERFICIAL PORTIONS OF (L82.0) (see microscopic description) Specimen B. SKIN, right ala: BASAL CELL CARCINOMA, NODULAR TYPE (C44.311) 4:25 PM [facility] DERMATOPATHOLOGY LABORATORY at 1625 CDT Clinical History A-B: Basal Cell Carcinoma 4:25 PM [facility]T DERMATOPATHOLOGY LABORATORY Gross Description Specimen A: Received [...] measuring 7x5x3 mm. Jar 0. 4:25 PM [facility] DERMATOPATHOLOGY LABORATORY Microscopic Description Specimen A. SKIN, [...] cytoplasmic ratio and peripheral palisading. 4:25 PM [facility]T DERMATOPATHOLOGY LABORATORY Disclaimer An external and internal positive and negative controls are appropriate for the histochemical, immunohistochemical and immunofluorescence stain(s) in this case (if any), except where stated explicitly. The performance characteristics of the stain(s) cited in this report were developed and its performance characteristic determined by the Dermatopathology Laboratory at [facility], directed by Dr. Marylu Yu. These tests need not be, and therefore are not, approved by the [place] Food and Drug Administration. The tests are used for clinical purposes. Billing Codes Specimen Charges Stain Charges 54157 90794 1 1 4:25 PM CDT DERMATOPATHOLOGY LABORATORY Embedded Images 4:25 PM [facility]T DERMATOPATHOLOGY LABORATORY Pathology/Cytology TISSUE SPECIMEN FROM SKIN / Unknown 04/05/2024 04/06/2024 12:16 PM CDT Miscellaneous samples (specimen) TISSUE SPECIMEN FROM SKIN / Unknown 04/05/2024 04/06/2024 12:16 PM CDT us Frida Alexander UTILITY TECHNICIAN-NIGHT COURT MAGISTRATE LAB - PATHOLOGY/CY TOLOGY ORDERABLES Final Result DERMATOPATHOLOGY LABORATORY [facility] - Department of Dermatology [facility] [address] [place] [address], [address] [phone] documented in this encounter Visit Diagnoses Diagnosis Neoplasm of uncertain behavior of skin documented in this encounter
[2025-03-20 08:46] LABS: Hematocrit 41.1 % (42.0-52.0); Hemoglobin 13.3 g/dL (14.0-18.0); Immature Granulocyte Percent A 0.4 % (0-0.5); Lymphocytes Absolute Auto 2.60 K/mm3 (0.9-3.2); Mean Corpuscular HGB Conc 32.4 g/dl (32-36); Mean Corpuscular Hemoglobin 26.8 pg (26-34); Mean Corpuscular Volume 82.9 fl (80-100); Nucleated Red Blood Cells Absolute Auto 0.000 K/mm3 (0.0-0.012); Nucleated Red Blood Cells Perc 0.0 % (0.0-0.2); Platelet Count Result 348 k/mm3 (150-375); Red Blood Count 4.96 M/mm3 (4.6-6.20); White Blood Count 10.9 K/mm3 (4.5-10.0)
[2025-03-20 08:49] LABS: Add Urine Microscopic? YES; Appearance Urine Clear (Clear); Glucose Urine UA Negative (Negative); Leukocyte Esterase Ur Negative LEU/UL (Negative); Nitrate Urine Negative (Negative); Non Pathogenic Casts 0-2; Specific Grav Ur 1.013 (1.001-1.035)
[2025-03-20 09:08] LABS: Alanine Aminotransferase 15 U/L (6-50); Albumin Level 4.4 g/dL (3.5-5.1); Alkaline Phosphatase 79 U/L (38-126); Anion Gap 10 mmol/L (4-12); Aspartate Amino Transferase 28 U/L (17-59); Bilirubin,Total 0.8 mg/dL (0.2-1.3); Blood Urea Nitrogen 25 mg/dL (9-20); Calcium 9.7 mg/dL (8.4-10.2); Carbon Dioxide 25 mmol/L (22-30); Chloride 102 mmol/L (98-107); Cholesterol 204 mg/dL (0-200); Estimated Glomerular Filt Rate 54; Glucose 106 mg/dL (65-110); HDL Direct 37 mg/dL; Potassium 4.8 mmol/L (3.4-5.0); Sodium 137 mmol/L (137-145); Total Protein 9.2 g/dL (6.3-8.2); Triglycerides 97 mg/dL (<150)
[2025-03-20 09:38] LABS: Hemoglobin A1C 6.0 % (<5.7)
[2025-03-20 09:45] LABS: Thyroid Stimulating Hormone 5.490 uIU/mL (0.465-4.680)
== END 2025-03-20 07:59 | disposition home or self-care (01) ==
LOC: ANHLAB 07:59
PROVIDERS: PCP Family Medicine; Visit Provider Physician Assistant
DX: E78.2 Mixed hyperlipidemia (principal); I10 Essential (primary) hypertension; R73.01 Impaired fasting glucose; D72.829 Elevated white blood cell count, unspecified; D64.9 Anemia, unspecified
CPT/HCPCS: 36415; 80053; 80061; 81001; 83036; 84443; 85025